=== PATIENT | male | born 1940 | race Caucasian/White ===

== ENCOUNTER → 2017-11-29 09:57 | Outpatient (CLI) | payer MEDICARE, SELFPAY ==
--- NOTE | 2017-11-29 10:00 | RAD_ITS ---
STUDY: X-RAY - LUMBAR SPINE REASON FOR EXAM: Male, 77 years old. Low back pain TECHNIQUE: 5 view(s) of the lumbar spine were obtained. COMPARISON: None FINDINGS: Normal lumbar lordosis. There is no substantial scoliosis. There is a normal alignment of the vertebrae. There is diffuse demineralization with multi-level endplate spondylosis. There is multi-level degenerative disc disease with multi-level disc space narrowing, most prominently at L4-5. There is no demonstrated fracture. There is atherosclerotic calcification of the abdominal aorta without a demonstrated aneurysm. RAD/L/S Spine Min 4 Views IMPRESSION: Degenerative changes of the spine, as detailed above. Electronically Signed: William Burroughs MD at 10:27 EDT , Service support ,
--- NOTE | 2017-11-29 10:00 | RAD_ITS ---
STUDY: X-RAY - SACROILIAC JOINTS REASON FOR EXAM: Male, 77 years old. Low back pain TECHNIQUE: 3 view(s) of the sacroiliac joints were obtained. COMPARISON: None. FINDINGS: There are degenerative changes of the bilateral sacroiliac joints. Normal visualized sacral ala and sacrum. Normal visualized iliac bones. Normal visualized soft tissue structures. Replaced right hip joint demonstrates anatomic alignment. No plain film evidence of hardware complication RAD/S-I Jts 3 or More Views IMPRESSION: Degenerative changes of the bilateral sacroiliac joints, as described above. Electronically Signed: William Burroughs MD at 10:28 EDT , Service support ,
== END ==
PROVIDERS: Family Provider Family Medicine; PCP Family Medicine; Visit Provider Family Medicine
DX: M51.16 Intervertebral disc disorders with radiculopathy, lumbar region (principal); M47.896 Other spondylosis, lumbar region
CPT/HCPCS: 72110; 72202

== ENCOUNTER → 2017-12-31 14:01 | Outpatient (CLI) | payer MEDICARE, SELFPAY ==
[2017-12-31 15:14] LABS: Absolute Lymphocyte Count 1.08 X10^3/ul (0.83-4.51); Absolute Neutrophil Count 5.7 X10^3/uL (2.0-7.7); Basophil# 0.04 X10^3/uL; Basophil% 0.5 % (0-1); Eosinophil# 0.19 X10^3/uL; Eosinophils% 2.4 % (0-5); Hematocrit 42.6 % (40-54); Hemoglobin 14.6 g/dl (13.0-16.5); Lymphocyte # 1.08 X10^3/ul (4.0); Lymphocyte % 13.5 % (19-41); Mean Corp Hgb Conc 34.3 g/gl (32-36); Mean Corpuscular Hgb 32.5 pg (27.0-32.0); Mean Corpuscular Volume 94.9 fL (80-94); Mean Platelet Vol. 10.9 fl (6.2-12.0); Monocyte# 0.93 X10^3/uL; Monocyte% 11.6 % (0-10); Neutrophil # 5.73 X10^3/uL (2.7-7.7); Neutrophil % 71.6 % (47-70); Platelet Count 142 K/mm3 (150-450); RBC Distribution Width CV 12.8 % (11.6-14.6); RBC Distribution Width SD 43.3 fl (35.1-43.9); Red Blood Count 4.49 M/mm3 (4.6-6.2)
[2017-12-31 15:15] LABS: POSITIVE COUNT NO; POSITIVE DIFFERENTIAL NO; POSITIVE MORPHOLOGY NO
[2017-12-31 15:49] LABS: Anion Gap 6 (5-15); BUN 13 mg/dL (7-18); BUN/Creat Ratio 13.4 RATIO (10-20); Calcium,Total 8.8 mg/dL (8.5-10.1); Chloride 105 mmol/L (98-107); Creatinine, Serum 0.97 mg/dL (0.70-1.30); EST Glomerular Filtration Rate 79 mL/min (>60); Est Glom Filt Rate - Afr Amer 96 mL/min (>60); Glucose 87 mg/dL (74-106); Potassium 4.1 mmol/L (3.5-5.1); Sodium Level 138 mmol/L (136-145); T4 Free Direct 0.99 ng/dL (0.76-1.46); Thyroid Stim Hormone (TSH) 1.36 uIU/mL (0.358-3.74)
== END ==
PROVIDERS: Family Provider Family Medicine; PCP Family Medicine; Visit Provider Nurse Practitioner Family
DX: I25.10 Atherosclerotic heart disease of native coronary artery without angina pectoris (principal); I10 Essential (primary) hypertension; R53.83 Other fatigue; Z95.0 Presence of cardiac pacemaker; Z95.1 Presence of aortocoronary bypass graft
CPT/HCPCS: 36415; 80048; 84439; 84443; 85025

== ENCOUNTER → 2018-01-06 05:50 | Outpatient (CLI) | payer MEDICARE, SELFPAY ==
--- NOTE | 2018-01-06 09:01 | STRESSREP ---
Stress Test Report Pharmacologic myocardial perfusion stress test. 77-year-old man with a history of fatigue and previous coronary bypass surgery. Resting EKG demonstrates normal sinus rhythm with rate of 61 bpm left bundle branch block pattern consistent with pacing activity. 0.4 mg of regadenoson was infused per usual protocol followed by rapid intravenous saline flush injection. Continuous EKG monitoring was performed. The patient maintained sinus rhythm with ventricular pacing throughout the recording at rest there were no ST or T-wave changes noted suggest abnormal flow reserve left bundle branch block pattern persisted throughout at peak infusion no ST or T-wave changes noted suggest abnormal flow reserve resting blood pressure is 170/80 mmHg with a final blood pressure 158/82 mmHg. Myocardial perfusion protocol. 14.1 mCi of technetium 99m sestamibi was injected at rest. 0.4 mg regadenoson was infused per usual protocol. At peak infusion 44.3 mCi of technetium 99m sestamibi was injected. Stress images were obtained stress and rest images were reconstructed and compared in the short axis vertical long and horizontal long axis. Gated images were also obtained. Perfusion SPECT analysis: Review of the stress images demonstrate normal uptake of tracer noted in all areas of the myocardium the resting images similarly demonstrate normal uptake of tracer noted in all areas of the myocardium. No areas of reversibility are noted suggest ischemia no previous infarct is noted. Gated SPECT analysis: The gated ejection fraction is 77%. Conclusion: Normal pharmacologic myocardial perfusion stress test Ventricular pacing noted. Preserved ejection fraction.
== END ==
PROVIDERS: Family Provider Family Medicine; PCP Family Medicine; Visit Provider Nurse Practitioner Family
DX: I25.10 Atherosclerotic heart disease of native coronary artery without angina pectoris (principal); R53.83 Other fatigue; Z95.1 Presence of aortocoronary bypass graft
CPT/HCPCS: 78452; 93017; A9500; A4216; J2785

== ENCOUNTER 2019-05-08 11:19 | Emergency (ER) | payer OTHER, MEDICARE, SELFPAY ==
[2019-04-16 07:42] VITALS: BMI 29.0
[2019-05-08 11:20] VITALS: BP 157/77; PULSE 60; RESP 16; TEMP 36.6; O2SAT 97; BMI 27.3
[2019-05-08 12:03] LABS: Anion Gap 4 (5-15); BUN 17 mg/dL (7-18); Calcium,Total 8.9 mg/dL (8.5-10.1); Chloride 105 mmol/L (98-107); Creatinine, Serum 1.21 mg/dL (0.70-1.30); EST Glomerular Filtration Rate 61 mL/min (>60); Est Glom Filt Rate - Afr Amer 74 mL/min (>60); Estimated Creatinine Clearance 47.11 ml/min; Glucose 107 mg/dL (74-106); Potassium 4.3 mmol/L (3.5-5.1); Sodium Level 136 mmol/L (136-145)
--- NOTE | 2019-05-08 12:08 | ED.VISSUMM ---
- ER Visit Summary Date of Service: 05/08/19 Chief Complaint: Abnormal lab History of Present Illness: The patient is a 78 M who was referred to the ED for high potassium. It was 5.7 on outpatient testing. He was not having symptoms. This was a medical clearance test. Physical Examination: Afebrile and vital signs unremarkable. Exam unremarkable. Test Results: BMP is unremarkable. Potassium is 4.3. Emergency Department Course and Treatment: I suspect the patient had a hemolyzed sample. His potassium is normal. His previous test have been normal. There is no indication to expect hyperkalemia. He was discharged to follow-up with his doctor. Treatment Plan: As above Disposition: Discharge Impression: 1. Hyperkalemia, feared complaint This note was generated with [employer] dictation software. It may contain incorrect words, spelling, and punctuation that were not noted in review of the chart prior to signing ED Disposition - Plan for ED Patient: Referrals: Elham Rodriguez MD [Primary Care Provider] -
--- NOTE | 2019-05-08 12:09 | ED.DEP ---
ED Disposition - Plan for ED Patient: Instructions: Basic Metabolic Panel Blood Referrals: Elham Rodriguez MD [Primary Care Provider] -
[2019-05-08 12:38] VITALS: BP 136/72; PULSE 60; RESP 16; O2SAT 93
== END 2019-05-08 12:39 | disposition home or self-care (01) ==
PROVIDERS: Emergency Provider Emergency Medicine; Family Provider Family Medicine; PCP Family Medicine
DX: Z71.1 Person with feared health complaint in whom no diagnosis is made (principal); I48.91 Unspecified atrial fibrillation; I10 Essential (primary) hypertension; Z79.82 Long term (current) use of aspirin; Z79.899 Other long term (current) drug therapy; Z87.891 Personal history of nicotine dependence
CPT/HCPCS: 80048; 99283; A4216

== ENCOUNTER → 2020-03-10 08:22 | Outpatient (CLI) | payer MEDICARE, SELFPAY ==
[2019-11-10 09:08] VITALS: BMI 27.9
[2020-03-17 18:22] LABS: ACHR Recep AB, Blocking 13 % (0-25); Acetylcholine Receptor Binding 0.04 nmol/L (0.00-0.24)
== END ==
PROVIDERS: PCP Family Medicine
DX: Z00.00 Encounter for general adult medical examination without abnormal findings (principal)
CPT/HCPCS: 36415; 83519; 84238

== ENCOUNTER 2020-07-25 00:26 | Observation (INO) | payer MEDICARE, OTHER, SELFPAY ==
[2020-05-12 11:00] VITALS: BMI 27.8
[2020-07-25] VITALS (9 sets, daily range): BP systolic 125–195; BP diastolic 54–92; PULSE 59–64; RESP 16–18; TEMP 36.6–37.1; O2SAT 93–98; BMI 28.7; BMI 28.8; BMI 28.9
--- NOTE | 2020-07-25 00:43 | EKG12_ITS ---
Test Reason : FLANK PAIN Blood Pressure : / mmHG Vent. Rate : 060 BPM Atrial Rate : 059 BPM P-R Int : 000 ms QRS Dur : 158 ms QT Int : 488 ms P-R-T Axes : 000 050 066 degrees QTc Int : 488 ms AV dual-paced rhythm Abnormal ECG Confirmed by BURAK BERNARD, JAMIE ([id number]), social media editor BJ MONTIEL ([id number]) on 07/26/2020 9:21:28 AM Referred By: KITA Confirmed By:JAMIE SUMNER MD
--- NOTE | 2020-07-25 00:44 | CT_ITS ---
STUDY: CT ABDOMEN AND PELVIS WITHOUT CONTRAST REASON FOR EXAM: Male, 80 years old. ALL OVER ABD PAIN X 1 DAY WITH NAUSEA, HX HTN, PACER, MS RADIATION DOSAGE (If Supplied By Facility): CTDIvol = ( 24.10 ) mGy, DLP = ( 1279.67 ) mGycm TECHNIQUE: Transaxial images were obtained from the dome of the diaphragm to the symphysis pubis without oral contrast, and without intravenous contrast. Sagittal and coronal images were reconstructed. Individualized dose optimization techniques were used for this CT. COMPARISON: None. FINDINGS: Lung bases reveal bilateral subpleural interstitial prominence suggestive of chronic interstitial lung disease/early pulmonary fibrosis. Heart is border line enlarged with coronary artery calcifications. Normal liver. Overdistended gallbladder otherwise unremarkable gallbladder and extrahepatic biliary system. There are multiple benign calcified granulomata of the spleen. Normal pancreas. Normal bilateral adrenal glands. Nonspecific perinephric stranding otherwise normal right kidney. Nonspecific perinephric stranding otherwise normal left kidney. Minimal hiatal hernia, otherwise unremarkable visualized stomach. Mild stranding surrounding the duodenal C-loop with pulmonary thickening of the wall throughout the duodenum, cannot exclude duodenitis. Remainder of the jejunal loops reveal borderline thickening of the wall with areas of air-fluid level which may indicate early enteritis. There are multiple colonic diverticula consistent with diverticulosis. The appendix is visualized and appears normal. There is diffuse atherosclerotic calcification of the abdominal aorta, without a demonstrated aneurysm. Normal inferior vena cava. Normal retroperitoneum. Normal urinary bladder. Normal abdominal wall. There are diffuse degenerative changes of the visualized lumbar spine. Postoperative changes with the right-sided humeral prosthesis in place. CT/Abdomen/Pelvis without Cont IMPRESSION: Findings suggestive of proximal enteritis/duodenitis. No acute appendicitis or bowel obstruction. Minimal hiatal hernia. Electronically Signed: Natalia Justice MD at 1:22 EST , Service support ,
--- NOTE | 2020-07-25 00:45 | ED.DCSUM_ITS ---
History of Present Illness Chief Complaint: Abd Pain Informant: Patient Narrative: Stated since yesterday approximately 20 hours ago he started constant aching epigastric abdominal pain. Hurts to push on it. 3 episodes of emesis. Normal bowel movements. Denies having this in the past. No previous abdominal surgeries. History of cardiac bypass in the remote past. Denies any chest pain or shortness of breath. He tried Pepto-Bismol with no relief. Current severity is moderate. Worsened by nothing. Relieved by nothing. It has been continuous. - Past Medical History (1) Dyspnea on exertion Status: Acute (2) Fatigue Status: Acute (3) AV block, Mobitz 2 Status: Chronic (4) Atherosclerotic heart disease of [place] coronary artery without angina pectoris Status: Chronic (5) Cardiac pacemaker in situ Status: Chronic Comment: Implant: 06/14/06 Generator change: 01/30/2013 (6) Essential (primary) hypertension Status: Chronic (7) H/O coronary artery bypass surgery Status: Chronic Comment: CABGx 3 CASAS graft LAD, SVG-Ramus, SVG- RCA 06/16/1997 (8) HLD (hyperlipidemia) Status: Chronic (9) Paroxysmal atrial fibrillation Status: Chronic Past Medical History - Allergies and Home Meds Allergies/Adverse Reactions: Allergies No Known Allergies Allergy (Verified 07/25/20 00:29) Prior records reviewed: Yes Past Medical History: - - See problem list Surgical History: coronary bypass surgery, pacemaker implantation, - Smoking Status: Former smoker Alcohol: None Drugs: None Review of Systems General: Denies: Chills, Fever, Sweats Eyes: Denies: Visual changes - bilaterally, Diplopia ENT: Denies: Rhinorrhea, Sore throat Cardiovascular: Denies: Chest pain, Palpitations Respiratory: Denies: Dyspnea, Cough, Dyspnea on exertion Gastrointestinal: Reports: Abdominal pain, Nausea, Vomiting. Denies: Diarrhea, Melena, Hematochezia Genitourinary: Denies: Dysuria, Hematuria, Frequency Musculoskeletal: Denies: Back pain, Extremity Pain Skin: Denies: Rash, Wounds Neurological: Denies: Headache, Weakness, Numbness Physical Exam Vital Signs/Narrative: Vital Signs Temp Pulse Resp BP Pulse Ox 07/25/20 00:26 97.8 F 60 16 195/92 H 98 General: Well nourished, Well developed, No Acute Distress Head: Normocephalic, Atraumatic Eyes: Perrl, EOMI ENT: Moist mucous membranes, No rhinorrhea Neck: Supple, Nontender Cardiovascular: Regular rate, Regular rhythm, No murmurs Respiratory: No distress, CTA bilaterally, Chest nontender Abdomen: Soft, Nondistended, Normal bowel sounds, Tender - Tender epigastric. Negative for: Guarding, Rebound tenderness Back: Nontender, Normal Inspection Extremities: Nontender, No edema Skin: Normal color, No rash Neurological: Alert, Oriented x3, Cranial nerves II-XII grossly intact, Normal Strength, Normal Sensation Psychological: Normal affect, Normal Mood Diagnostic/Tx/Re-eval - Medical Decision Making IV established and given morphine and Zofran. Lab work EKG and CT abdomen pelvis obtained.. Patient also given IV fluids. Lab work shows a mild leukocytosis. Liver function test unremarkable. Lipase greater than 1000. CT abdomen pelvis shows evidence of duodenitis and enteritis. 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 He did have this problem several years ago and it resolved on its own. He is a nondrinker. Gallbladder was visualized that shows distention without stones. Patient stated this resolved in the past without problem when he was admitted to [facility] a few years ago. Patient discussed with the hospitalist and will be readmitted. EKG was obtained shows paced rhythm at a rate of 60. Troponin was negative. ED Disposition - Plan for ED Patient: Disposition: Acute Care Hospital [facility] Diagnosis: Acute pancreatitis, Duodenitis
[2020-07-25] MEDS: Morphine 2 MG/ML Syringe IV ×2 (00:58→04:29)
[2020-07-25] MEDS: Ondansetron 4 MG/2 ML Vial IV ×2 (00:59→04:25)
[2020-07-25 01:12] LABS: Absolute Lymphocyte Count 1.03 X10^3/uL (0.83-4.51); Basophil# 0.06 X10^3/uL; Basophil% 0.5 % (0-1); Eosinophil# 0.15 X10^3/uL; Eosinophils% 1.3 % (0-5); Hematocrit 45.5 % (40-54); Hemoglobin 15.3 g/dL (13.0-16.5); Lymphocyte # 1.03 X10^3/ul (4.0); Lymphocyte % 8.8 % (19-41); Mean Corp Hgb Conc 33.6 g/dL (32-36); Mean Corpuscular Hgb 31.5 pg (27.0-32.0); Mean Corpuscular Volume 93.6 fL (80-94); Mean Platelet Vol. 10.8 fl (6.2-12.0); Monocyte# 1.43 X10^3/uL; Monocyte% 12.2 % (0-10); NRBC Flagged by Analyzer 0 % (0-5); Neutrophil # 9.02 X10^3/uL (2.7-7.7); Neutrophil % 76.8 % (47-70); Platelet Count 143 K/mm3 (150-450); RBC Distribution Width CV 11.8 % (11.6-14.6); RBC Distribution Width SD 40.8 fl (35.1-43.9); Red Blood Count 4.86 M/mm3 (4.6-6.2); White Blood Count 11.7 K/mm3 (4.4-11.0)
[2020-07-25 01:27] LABS: ALB/GLOB Ratio 0.9 RATIO (0.9-2.4); AST(SGOT) 21 U/L (15-37); Alanine Aminotransfer ALT/SGPT 25 U/L (16-61); Albumin, Serum 3.4 g/dL (3.2-5.0); Alkaline Phosphatase 117 U/L (45-117); Anion Gap 9 (5-15); BUN 13 mg/dL (7-18); BUN/Creat Ratio 13.2 RATIO (10-20); Calcium,Total 8.4 mg/dL (8.5-10.1); Chloride 99 mmol/L (98-107); Creatinine, Serum 0.98 mg/dL (0.70-1.30); EST Glomerular Filtration Rate 78 mL/min (>60); Est Glom Filt Rate - Afr Amer 94 mL/min (>60); Estimated Creatinine Clearance 54.33 ml/min; Globulin 3.8 g/dL (2.2-4.2); Glucose 115 mg/dL (74-106); Lipase 1097 U/L (73-393); Potassium 3.9 mmol/L (3.5-5.1); Protein, Total 7.2 g/dL (6.4-8.2); Sodium Level 134 mmol/L (136-145)
[2020-07-25] MEDS: 0.9% Normal Saline 1,000 ML 150 ML IV (01:47)
--- NOTE | 2020-07-25 01:59 | HP.PCM_ITS ---
Problem List (1) Acute pancreatitis Status: Acute (2) Duodenitis Status: Acute (3) Cardiac pacemaker in situ Status: Chronic Comment: Implant: 06/14/06 Generator change: 01/30/2013 (4) AV block, Mobitz 2 Status: Chronic (5) Atherosclerotic heart disease of [place] coronary artery without angina pectoris Status: Chronic Qualifiers: [place] vs. transplanted heart: [place] heart Qualified Code(s): I25.10 - Atherosclerotic heart disease of [place] coronary artery without angina pectoris (6) H/O coronary artery bypass surgery Status: Chronic Comment: CABGx 3 CASAS graft LAD, SVG-Ramus, SVG- RCA 06/16/1997 (7) Paroxysmal atrial fibrillation Status: Chronic (8) Essential (primary) hypertension Status: Chronic (9) HLD (hyperlipidemia) Status: Chronic Qualifiers: Hyperlipidemia type: unspecified Qualified Code(s): E78.5 - Hyperlipidemia, unspecified (10) Enteritis Status: Acute History of Present Illness Date of Admission: 07/25/20 Chief Complaint: Epigastric pain The patient is a 80 year old M 80-year-old patient with a significant medical history of permanent pacemaker placement who presents with epigastric abdominal pain. His pain started a day before presentation. His pain was continuous. He rated his pain as 8 out of 10. He denies any aggravating or ameliorating factors to the pain. He describes pain as aching. Associated with his symptoms is nausea and vomiting. His pain radiated to his lower chest. He is not a drinker of alcohol. He has never had any previous significant abd ominal problems other than an episode 3 years ago where he had similar complaints. He was seen at outside hospital with negative work-up including gallbladder ultrasound and cardiac cardiac work-up. At that time he had elevated lipase. He did come to our emergency department and had a lipase of about 500 at that time but did not have pain and was discharged home. Past Medical History Past Medical History (Chronic Problems): Chronic Problems (Last Reviewed 07/25/20 @ 04:[address] Reddy Gama MD) Cardiac pacemaker in situ (Chronic 2012) Implant: 06/14/06 Generator change: 01/30/2013 AV block, Mobitz 2 (Chronic) Atherosclerotic heart disease of [place] coronary artery without angina pectoris (Chronic) H/O coronary artery bypass surgery (Chronic 06/16/97) CABGx 3 CASAS graft LAD, SVG-Ramus, SVG- RCA 06/16/1997 Paroxysmal atrial fibrillation (Chronic) Essential (primary) hypertension (Chronic) HLD (hyperlipidemia) (Chronic) Medical History: Medical History (Last Reviewed 07/25/20 @ 04:[address] Reddy Gama MD) AV block, Mobitz 2 (Chronic) I44.1 Atherosclerotic heart disease of [place] coronary artery without angina pectoris (Chronic) I25.10 Paroxysmal atrial fibrillation (Chronic) I48.0 Essential (primary) hypertension (Chronic) I10 HLD (hyperlipidemia) (Chronic) E78.5 Allergies No Known Allergies Allergy (Verified 07/25/20 00:29) Home Medications: Ambulatory Orders Medication Instructions Recorded Aspirin [Aspir-Low] 81 mg PO QHS 06/22/17 Esomeprazole Mag Trihydrate 40 mg PO DAILY 06/22/17 [Nexium] [place]-3 Fatty Acids/Fish Oil [Fish 1 ea PO DAILY 06/22/17 Oil 1,000 mg Capsule] nitroglycerin 0.4 mg sublingual 0.4 mg SUBLINGUAL Q5M PRN 09/13/17 tablet ramipril 2.5 mg capsule 2.5 mg PO DAILY #90 cap 04/16/19 apixaban 5 mg tablet 5 mg PO BID #180 tab 11/10/19 atorvastatin 80 mg tablet 80 mg PO DAILY 11/10/19 metoprolol succinate 50 mg 50 mg PO DAILY #90 tab 05/16/20 tablet,extended release 24 hr Cholecalciferol (Vitamin D3) 2,000 unit PO BID 07/25/20 [Vitamin D3] Surgical History: Surgical History (Last Reviewed 07/25/20 @ 04:[address] Reddy Gama MD) Cardiac pacemaker in situ (Chronic) Onset Date: 2012 Z95.0 Implant: 06/14/06 Generator change: 01/30/2013 H/O coronary artery bypass surgery (Chronic) Onset Date: 06/16/97 Z95.1 CABGx 3 CASAS graft LAD, SVG-Ramus, SVG- RCA 06/16/1997 History of left heart catheterization (LHC) Z98.890 10/05/2004 @ [facility] Surgical History: coronary bypass surgery, pacemaker implantation, - Smoking Status: Former smoker Alcohol: None Drugs: None - *Family History Maternal Family History: Family History (Last Reviewed 07/25/20 @ 04:[address] Reddy Gama MD) Father Cancer Mother Hypertension Brother CVA (cerebral vascular accident) Diabetes Sister Diabetes Review of Systems Constitutional: Denies: Chills, Fever, Weight Change HEENT: Denies: Head Aches, Sinus Congestion, Sinus Drainage Cardiovascular: Denies: Chest Pain, Palpitations Respiratory: Denies: Cough, Shortness of breath at rest, Sputum production Gastrointestinal: Reports: Abdominal Pain, Nausea, Vomiting Genitourinary: Denies: Dysuria Musculoskeletal: Denies: Joint Pain, Joint Tenderness Skin: Denies: Rash, Wounds Neurological: Denies: Numbness, Tingling, Focal weakness Psychiatric: Denies: Anxiety, Depression, Homicidal Ideations, Suicidal Ideations Hematologic/ Lymphatic: Denies: Easy Bruising, Easy Bleeding VTE Information - Inpt Only VTE Present on Admission: No VTE Mechan Device Prophylaxis: None VTE Pharm Prophylaxis ordered?: No Reason prophylaxis not ordered:: Treatment Not Indicated - Eliquis for A. fib continued Patient Problems: Active and Suspected Problems (Last Reviewed 07/25/20 @ 04:[address] Reddy Gama MD) Acute pancreatitis (Acute) Duodenitis (Acute) Enteritis (Acute) - Physical Exam Vitals/I&O's: Vital Signs Temp Pulse Resp BP Pulse Ox 97.8 F 60 16 195/92 H 98 07/25/20 00:26 07/25/20 00:26 07/25/20 00:26 07/25/20 00:26 07/25/20 00:26 Oxygen Delivery Method Room Air Weight: 83.2 kg Body Mass Index (BMI) 28.7 General: Alert, Oriented x3, Cooperative HEENT: Atraumatic, PERRLA, EOMI, Normocephalic Neck: Supple, No JVD, Negative Carotid Bruits Lungs: Clear to auscultation, Normal air movement, No rhonchi, No wheeze, No rales Cardiovascular: Regular rate, Regular Rhythm, Normal S1, Normal S2, No murmurs Abdomen: Bowel Sounds Present, Soft, Tender - Right lumbar area Extremities: No edema, Capillary Refill Less than 3 Seconds Skin: No rashes, No breakdown Musculoskeletal: No Tenderness to Palpation of Joints or Extremities Neurological: Cranial nerves II-XII grossly intact Psych/Mental Status: Normal Affect, Appropriate Laboratory Results 07/25/20 01:00: WBC 11.7 H, RBC 4.86, Hgb 15.3, Hct 45.5, MCV 93.6, MCH 31.5, MCHC 33.6, RDW Std Deviation 40.8, RDW Coeff of [place] 11.8, Plt Count 143 L, MPV 10.8, Immature Gran % (Auto) 0.400, Neut % (Auto) 76.8 H, Lymph % (Auto) 8.8 L, [place] % (Auto) 12.2 H, Eos % (Auto) 1.3, Baso % (Auto) 0.5, Absolute Neuts (auto) 9.0 H, Absolute Lymphs (auto) 1.03, Nucleated RBC % 0 07/25/20 01:00: Sodium 134 L, Potassium 3.9, Chloride 99, Carbon Dioxide 26.0, Anion Gap 9, BUN 13, Creatinine 0.98, Estim Creat Clear Calc 54.33, Est GFR (MDRD) Af Amer 94, Est GFR (MDRD) Non-Af 78, BUN/Creatinine Ratio 13.2, Glucose 115 H, Calcium 8.4 L, Total Bilirubin 1.10 H, AST 21, ALT 25, Alkaline Phosphatase 117, Troponin I < 0.015, Total Protein 7.2, Albumin 3.4, Globulin 3.8, Albumin/Globulin Ratio 0.9, Lipase 1097 H Current Medications Sodium Chloride () 1,000 mls @ 150 mls/hr IV .Q6H40M [facility] Last Admin: 07/25/20 01:47 Dose: 150 mls/hr Documented by: Assessment/Plan All Active Problems (Last Reviewed 07/25/20 @ 04:[address] Reddy Gama MD) Acute pancreatitis (Acute) Duodenitis (Acute) Enteritis (Acute) Acute pancreatitis Lipase on presentation was 1097. Review of old records shows that on 06/21/2017 his lipase was 516. And on 06/22/2018 his lipase was 554. On 06/28/2017 his lipase was 272. Received normal saline 150 mL's per hour at emergency department. Lactated Ringer's 100 MS per hour ordered. Cautious use of IV fluid because of his age. Will check a lipid level. Patient is not a drinker. We will keep patient n.p.o. except meds and gets ultrasound of his gallbladder. Of note liver enzymes are not remarkable. Received morphine IV at emergency department. Continue morphine IV as needed ordered. Duodenitis/enteritis. CT of abdomen and pelvis showed duodenitis/pancreatitis. This can also cause elevated lipase. On home Nexium once a day. Protonix 40 mg IV twice daily ordered Leukocytosis Mild Likely reactive Trend. Proximal A. fib Apixaban continued Metoprolol continued Hypertensive urgency Metoprolol; and SKYLER inhibitor continued Hydralazine as needed ordered. Hyperlipidemia Lipitor continued DVT prophylaxis Not indicated since patient is on Eliquis. Eliquis continued. Inpatient E&M: 78822 Init Hosp L3
[2020-07-25 03:17] LABS: Cholesterol 152 mg/dL (200); High Density Lipoprotein 52 mg/dL; Triglycerides 67 mg/dL; Very Low Density Lipoprotein 13 mg/dL (5-40)
[2020-07-25] MEDS: Lactated Ringers 1,000 ML 100 ML IV ×2 (03:20→15:39)
[2020-07-25] MEDS: hydrALAZINE 20 MG/ML Vial 5 MG IV (03:22)
--- NOTE | 2020-07-25 05:55 | US_ITS ---
STUDY: ABDOMINAL ULTRASOUND - RIGHT UPPER QUADRANT REASON FOR VISIT: Male, 80 years old PANCREATITIS -- R/O GALLSTONES TECHNIQUE: Ultrasound evaluation of the right upper quadrant was performed with real-time and static jose-scale imaging. TECHNICAL QUALITY: Adequate. COMPARISON: None. FINDINGS: Liver: The liver measures 16.2 cm. There is normal echogenicity of the liver. The bile ducts are within normal limits. There is hepatic color flow. The direction of portal flow is hepatopetal. There is no demonstrated mass lesion. Gallbladder: Normal distended gallbladder. The gallbladder wall measures 2.8 mm. There is a negative sonographic Montilla''s sign. There is no pericholecystic fluid. There are no gallstones. Common Bile Duct (C.B.D.): The common bile duct measures 2.8 mm. Pancreas: Normal size of the head, body and tail of the pancreas. There is increased echogenicity of the pancreas. There is no demonstrated pancreatic mass or cyst. Right Kidney: Normal size of the right kidney. The right kidney measures 10.8 cm x 5.4 cm x 5.8 cm. Normal renal cortex. The right cortex measures cm. There is no demonstrated renal mass or cyst. There is no right hydronephrosis. US/Abdomen Limited IMPRESSION: Normal right upper quadrant ultrasound examination. Electronically Signed: Braxton Dewey, at 13:25 EST , Service support ,
[2020-07-25] MEDS: proCHLORPERazine 10 MG/2 ML Vial 5 MG IV (09:20)
--- NOTE | 2020-07-25 10:25 | CASEMGMT ---
RN CM Face to Face with patient for initial transition planning/care coordination assessment. RN CM introduced self and role at [facility]. Patient lying in bed, alert and oriented. Patient willing to participate in assessment and is able to answer all questions appropriately. Care providers, pharmacy, and demographics verified. Patient wishes to discharge home, denies need for home health at this time. Patient states he has no further needs or concerns at this time. CM to follow for discharge planning needs that may arise. PCP: Michael Specialists: Dai senior research associate Preferred Pharmacy: [facility] Prescription Benefit: yes Living Will/HPOA: yes, Yamilex Andrews HPOA LNOK: Living Arrangements: Patient lives with in a single story home with 2 steps and railing to enter the home. Patient states he is independent at home Transportation: self/ DME/HHC: Patient states he has cane and grab bars at home. Patient denies previous HHC. Disposition Plan: Patient to discharge home with family support and follow-up plan in place. Susan FRANCISCO, RN, CM
[2020-07-26] MEDS: Lactated Ringers 1,000 ML 100 ML IV ×2 (02:05→12:57)
[2020-07-26 02:08] VITALS: BP 128/53; PULSE 62; RESP 16; TEMP 37.1; O2SAT 92
[2020-07-26 05:45] LABS: Absolute Lymphocyte Count 0.99 X10^3/uL (0.83-4.51); Absolute Neutrophil Count 6.2 X10^3/uL (2.0-7.7); Basophil# 0.04 X10^3/uL; Basophil% 0.5 % (0-1); Eosinophil# 0.11 X10^3/uL; Eosinophils% 1.3 % (0-5); Hematocrit 41.5 % (40-54); Hemoglobin 13.5 g/dL (13.0-16.5); Lymphocyte # 0.99 X10^3/ul (4.0); Lymphocyte % 11.4 % (19-41); Mean Corp Hgb Conc 32.5 g/dL (32-36); Mean Corpuscular Hgb 30.9 pg (27.0-32.0); Mean Platelet Vol. 10.9 fl (6.2-12.0); Monocyte% 14.9 % (0-10); NRBC Flagged by Analyzer 0 % (0-5); Neutrophil # 6.23 X10^3/uL (2.7-7.7); Neutrophil % 71.6 % (47-70); Platelet Count 117 K/mm3 (150-450); RBC Distribution Width CV 11.9 % (11.6-14.6); RBC Distribution Width SD 41.3 fl (35.1-43.9); Red Blood Count 4.37 M/mm3 (4.6-6.2); White Blood Count 8.7 K/mm3 (4.4-11.0)
[2020-07-26 06:04] LABS: Anion Gap 5 (5-15); BUN 11 mg/dL (7-18); BUN/Creat Ratio 12.1 RATIO (10-20); Calcium,Total 8.4 mg/dL (8.5-10.1); Chloride 106 mmol/L (98-107); Creatinine, Serum 0.91 mg/dL (0.70-1.30); EST Glomerular Filtration Rate 85 mL/min (>60); Est Glom Filt Rate - Afr Amer 103 mL/min (>60); Estimated Creatinine Clearance 58.51 ml/min; Glucose 101 mg/dL (74-106); Lipase 363 U/L (73-393); Potassium 3.9 mmol/L (3.5-5.1); Sodium Level 137 mmol/L (136-145)
[2020-07-26 07:25] VITALS: O2SAT 92
[2020-07-26 08:08] VITALS: BP 147/62; PULSE 70; RESP 18; TEMP 36.8; O2SAT 98
[2020-07-26 10:12] VITALS: PULSE 74
[2020-07-26] MEDS: Calcium Carb/Vitamin D 1 TABLET Tablet PO (10:12)
[2020-07-26] MEDS: Ramipril 2.5 MG Capsule PO (10:12)
[2020-07-26] MEDS: Metoprolol(XL)Succ 50 MG Tablet PO (10:12)
[2020-07-26] MEDS: Aspirin E.C. 81 MG Tablet PO (10:13)
[2020-07-26] MEDS: APIXABAN 5 MG TABLET PO (10:13)
--- NOTE | 2020-07-26 11:04 | PCM.DC.SUM ---
Discharge Date and Diagnosis - Problem List Patient Problems: Active and Suspected Problems (Last Reviewed 07/25/20 @ 04:[address] Reddy Gama MD) Acute pancreatitis (Acute) Duodenitis (Acute) Enteritis (Acute) Date of Admission: 07/25/20 Date of Discharge: 07/26/20 - Primary Discharge Diagnosis Acute Problems: Active Problems (Last Reviewed 07/25/20 @ 04:[address] Reddy Gama MD) Acute pancreatitis (Acute) Duodenitis (Acute) Enteritis (Acute) - Secondary Discharge Diagnosis Chronic Problems: Chronic Problems (Last Reviewed 07/25/20 @ 04:[address] 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 TECHNICAL QUALITY: Adequate. COMPARISON: None. FINDINGS: Liver: The liver measures 16.2 cm. There is normal echogenicity of the liver. The bile ducts are within normal limits. There is hepatic color flow. The direction of portal flow is hepatopetal. There is no demonstrated mass lesion. Gallbladder: Normal distended gallbladder. The gallbladder wall measures 2.8 mm. There is a negative sonographic Montilla''s sign. There is no pericholecystic fluid. There are no gallstones. Common Bile Duct (C.B.D.): The common bile duct measures 2.8 mm. Pancreas: Normal size of the head, body and tail of the pancreas. There is increased echogenicity of the pancreas. There is no demonstrated pancreatic mass or cyst. Right Kidney: Normal size of the right kidney. The right kidney measures 10.8 cm x 5.4 cm x 5.8 cm. Normal renal cortex. The right cortex measures cm. There is no demonstrated renal mass or cyst. There is no right hydronephrosis. US/Abdomen Limited IMPRESSION: Normal right upper quadrant ultrasound examination. Electronically Signed: Braxton Dewey, at 13:25 EST , Service support , TUDY: CT ABDOMEN AND PELVIS WITHOUT CONTRAST REASON FOR EXAM: Male, 80 years old. ALL OVER ABD PAIN X 1 DAY WITH NAUSEA, HX HTN, PACER, NM RADIATION DOSAGE (If Supplied By Facility): CTDIvol = ( 24.10 ) mGy, DLP = ( 1279.67 ) mGycm TECHNIQUE: Transaxial images were obtained from the dome of the diaphragm to the symphysis pubis without oral contrast, and without intravenous contrast. Sagittal and coronal images were reconstructed. Individualized dose optimization techniques were used for this CT. COMPARISON: None. FINDINGS: Lung bases reveal bilateral subpleural interstitial prominence suggestive of chronic interstitial lung disease/early pulmonary fibrosis. Heart is border line enlarged with coronary artery calcifications. Normal liver. Overdistended gallbladder otherwise unremarkable gallbladder and extrahepatic biliary system. There are multiple benign calcified granulomata of the spleen. Normal pancreas. Normal bilateral adrenal glands. Nonspecific perinephric stranding otherwise normal right kidney. Nonspecific perinephric stranding otherwise normal left kidney. Minimal hiatal hernia, otherwise unremarkable visualized stomach. Mild stranding surrounding the duodenal C-loop with pulmonary thickening of the wall throughout the duodenum, cannot exclude duodenitis. Remainder of the jejunal loops reveal borderline thickening of the wall with areas of air-fluid level which may indicate early enteritis. There are multiple colonic diverticula consistent with diverticulosis. The appendix is visualized and appears normal. There is diffuse atherosclerotic calcification of the abdominal aorta, without a demonstrated aneurysm. Normal inferior vena cava. Normal retroperitoneum. Normal urinary bladder. Normal abdominal wall. There are diffuse degenerative changes of the visualized lumbar spine. Postoperative changes with the right-sided humeral prosthesis in place. CT/Abdomen/Pelvis without Cont IMPRESSION: Findings suggestive of proximal enteritis/duodenitis. No acute appendicitis or bowel obstruction. Minimal hiatal hernia. Electronically Signed: Natalia Justice MD at 1:22 EST , Service support , Operations: None Procedures: None Summary of Care Provided: Mr. Andrews is an 80 year old M 80-year-old patient with a significant medical history of permanent pacemaker placement who presented to the ED on 07/25/2020 early in the AM with epigastric abdominal pain. He stated at that time that his pain started a day before presentation. His pain was continuous. He rated it as 8 out of 10. He denied any aggravating or ameliorating factors. He described it as aching in nature and had associated nausea and vomiting. He is not a drinker of alcohol. He stated that he had and episode similar to this one about 3 years ago that resolved on its own. A CT of the abdomen done in the ED demonstrated duodenitis and enteritis and his lipase on admission was 1097 with a bilirubin of 1.10. A RUQ US was done and was unremarkable. He was made NPO and given hydration and pain medications. His sx had completely resolved on the AM of 07/26 and he was given a CLD which was able to be progressed to a regular cardiac diet without issues. He was discharged home with no medication changes on 07/26 in stable condition and instructed to f/u with his PCP in 1-2 weeks for a hospital follow-up. Discharge Diagnoses Acute Pancreatitis-mild and resolved AV Block-Mobitz 2 s/p pacer CAD PAF HTN HPL GERD D/C time > 31' Patient Problems: Active and Suspected Problems (Last Reviewed 07/25/20 @ 04:[address] Reddy Gama MD) Acute pancreatitis (Acute) Duodenitis (Acute) Enteritis (Acute) - Physical Exam Vitals/I&O's: Vital Signs Temp Pulse Resp BP Pulse Ox 98.3 F 74 18 147/62 H 98 07/26/20 08:08 07/26/20 10:12 07/26/20 08:08 07/26/20 08:08 07/26/20 08:08 Oxygen Delivery Method Room Air Weight: 83.6 kg Body Mass Index (BMI) 28.8 Intake and Output for Last 24 Hours 07/24/20 07/25/20 07/26/20 23:59 23:59 23:59 Intake Total 2229.17 / 2229.17 333.33 / 333.33 Output Total 650 / 650 650 / 650 Balance 1579.17 / 1579.17 -316.67 / -316.67 General: Alert, Oriented x3, Cooperative, No apparent distress, Well developed, Well nourished, - - Older WF sitting up in bed watching TV and appears well HEENT: Atraumatic Oral: Moist Mucosa, No Gingival or Mucosal Lesions/ Ulcerations Neck: Supple, Trachea Midline, Thyroid Normal Size and Texture Lungs: Clear to auscultation, No rhonchi, No wheeze, No rales Cardiovascular: Regular rate, Regular Rhythm, Normal S1, Normal S2, No murmurs, No rub noted, No Gallop Abdomen: Bowel Sounds Present, Soft, Non Tender, Non-Distended Extremities: No clubbing, No cyanosis, No edema, Capillary Refill Less than 3 Seconds, Peripheral Pulses Normal Skin: No rashes, No breakdown Musculoskeletal: No Tenderness to Palpation of Joints or Extremities, No Muscle Wasting, Arthritic Changes Lymphatic: No Cervical, Supraclavicular, or Inguinal Adenopathy Neurological: Cranial nerves II-XII grossly intact, Neuro grossly intact Psych/Mental Status: Normal Affect, Appropriate, - - very pleasant, Alert and oriented to time, place, person, mood and affect Laboratory Results 07/26/20 05:04: WBC 8.7, RBC 4.37 L, Hgb 13.5, Hct 41.5, MCV 95.0 H, MCH 30.9, MCHC 32.5, RDW Std Deviation 41.3, RDW Coeff of Lacey 11.9, Plt Count 117 L, MPV 10.9, Immature Gran % (Auto) 0.300, Neut % (Auto) 71.6 H, Lymph % (Auto) 11.4 L, Karnes % (Auto) 14.9 H, Eos % (Auto) 1.3, Baso % (Auto) 0.5, Absolute Neuts (auto) 6.2, Absolute Lymphs (auto) 0.99, Nucleated RBC % 0 07/26/20 05:04: Sodium 137, Potassium 3.9, Chloride 106, Carbon Dioxide 26.0, Anion Gap 5, BUN 11, Creatinine 0.91, Estim Creat Clear Calc 58.51, Est GFR (MDRD) Af Amer 103, Est GFR (MDRD) Non-Af 85, BUN/Creatinine Ratio 12.1, Glucose 101, Calcium 8.4 L, Lipase 363 Current Medications Apixaban (Apixaban 5 Mg Tablet) 5 mg PO BID [facility] Last Admin: 07/26/20 10:13 Dose: 5 mg Documented by: Aspirin (Aspirin E.C. 81 Mg Tablet) [facility] Last Admin: 07/26/20 10:13 Dose: 81 mg Documented by: Atorvastatin Calcium (Atorvastatin Calcium 80 Mg Tablet) 80 mg PO DAILY@2200 [facility] Last Admin: 07/25/20 21:42 Dose: Not Given Documented by: Calcium/Vitamin D (Calcium Carb/Vitamin D 1 Tablet Tablet) 1 tablet PO DAILY [facility] Last Admin: 07/26/20 10:12 Dose: 1 tablet Documented by: Hydralazine HCl (Hydralazine 20 Mg/Ml Vial) 5 mg IV Q6H PRN PRN PRN Reason: sbp > 160 Last Admin: 07/25/20 03:22 Dose: 5 mg Documented by: Lactated Ringer's () 1,000 mls @ 100 mls/hr IV .Q10H [facility] Last Admin: 07/26/20 02:05 Dose: 100 mls/hr Documented by: Pantoprazole Sodium 40 mg/ (Sodium Chloride) 110 mls @ 330 mls/hr IV Q12 [facility] Last Admin: 07/26/20 10:21 Dose: 330 mls/hr Documented by: Metoprolol Succinate (Metoprolol(Xl)Succ 50 Mg Tablet) 50 mg PO DAILY [facility] Last Admin: 07/26/20 10:12 Dose: 50 mg Documented by: Morphine Sulfate (Morphine 2 Mg/Ml Syringe) 2 mg IV Q3H PRN PRN PRN Reason: Pain Score 6-10 Last Admin: 07/25/20 04:29 Dose: 2 mg Documented by: Ondansetron HCl (Ondansetron 4 Mg/2 Ml Vial) 4 mg IV Q8H PRN PRN PRN Reason: NAUSEA/VOMITING Last Admin: 07/25/20 04:25 Dose: 4 mg Documented by: Prochlorperazine Edisylate (Prochlorperazine 10 Mg/2 Ml Vial) 5 mg IV Q4H PRN PRN PRN Reason: NAUSEA/VOMITING Last Admin: 07/25/20 09:20 Dose: 5 mg Documented by: Ramipril (Ramipril 2.5 Mg Capsule) 2.5 mg PO DAILY [facility] Last Admin: 07/26/20 10:12 Dose: 2.5 mg Documented by: Sodium Chloride (0.9% Saline Lock 10 Ml Syringe) 10 - 40 ml IV UD PRN PRN Reason: SALINE FLUSH Home Medications: Medications to take at Discharge Aspirin [Aspir-Low] 81 mg PO QHS 06/22/17 Esomeprazole Mag Trihydrate [Nexium] 40 mg PO DAILY 06/22/17 [place]-3 Fatty Acids/Fish Oil [Fish Oil 1,000 mg Capsule] 1 ea PO DAILY 06/22/17 nitroglycerin 0.4 mg sublingual tablet 0.4 mg SUBLINGUAL Q5M PRN 09/13/17 ramipril 2.5 mg capsule 2.5 mg PO DAILY #90 cap 04/16/19 apixaban 5 mg tablet 5 mg PO BID #180 tab 11/10/19 atorvastatin 80 mg tablet 80 mg PO DAILY 11/10/19 metoprolol succinate 50 mg tablet,extended release 24 hr 50 mg PO DAILY #90 tab 05/16/20 Cholecalciferol (Vitamin D3) [Vitamin D3] 2,000 unit PO BID 07/25/20 Primary Care Physician: Elham Rodriguez MD [Primary Care Provider] - Medical Necessity - Tobacco Use Smoking Status: Former smoker Meaningful Use Info Meaningful Use Diagnoses (Choose all that apply): None applicable Inpatient E&M: [id number] [facility]
--- NOTE | 2020-07-26 14:38 | PCM.DC ---
- Discharge Diagnoses Current Active Problems: Current Active and Chronic Problems (Last Reviewed 07/25/20 @ 04:[address] 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) H/O coronary artery bypass surgery (Chronic 06/16/97) CABGx 3 CASAS graft LAD, SVG-Ramus, SVG- RCA 06/16/1997 Paroxysmal atrial fibrillation (Chronic) Essential (primary) hypertension (Chronic) HLD (hyperlipidemia) (Chronic) You will use the following diet at home:: Cardiac Your food should be the consistency of: Regular Your liquids should be the consistency of: Regular/Thin Discharge Activity: Return to Normal Activity, No Restrictions, May Drive Allergies/Adverse Reactions: Allergies No Known Allergies Allergy (Verified 07/25/20 00:29) Medications to take at Discharge Aspirin [Aspir-Low] 81 mg PO QHS 06/22/17 Esomeprazole Mag Trihydrate [Nexium] 40 mg PO DAILY 06/22/17 [place]-3 Fatty Acids/Fish Oil [Fish Oil 1,000 mg Capsule] 1 ea PO DAILY 06/22/17 nitroglycerin 0.4 mg sublingual tablet 0.4 mg SUBLINGUAL Q5M PRN 09/13/17 ramipril 2.5 mg capsule 2.5 mg PO DAILY #90 cap 04/16/19 apixaban 5 mg tablet 5 mg PO BID #180 tab 11/10/19 atorvastatin 80 mg tablet 80 mg PO DAILY 11/10/19 metoprolol succinate 50 mg tablet,extended release 24 hr 50 mg PO DAILY #90 tab 05/16/20 Cholecalciferol (Vitamin D3) [Vitamin D3] 2,000 unit PO BID 07/25/20 Primary Care Physician: Elham Rodriguez MD [Primary Care Provider] - Please follow up with your Primary Care Physician in: 1-2 weeks --> call for an appt tomorrow for hospital f/u Test Results: Test results from this visit will be discussed in further detail at your follow-up appointment, if applicable.
--- NOTE | 2020-07-26 14:53 | CASEMGMT ---
BENITEZ FIELDS in to discuss WILEY form with patient. RN DIAMOND explained WILEY form to patient, patient voiced understanding. Patient signed WILEY form and filed in chart. BENITEZ FIELDS provided patient with copy of signed WILEY form. Patient had no further questions or concerns at this time.
[2020-07-26 15:36] VITALS: BP 162/77; PULSE 69; RESP 18; TEMP 37.1; O2SAT 98
== END 2020-07-26 18:49 | disposition home or self-care (01) ==
LOC: ED 01:48 → MS3 06:51
PROVIDERS: Admitting Provider Hospitalist; Emergency Provider Emergency Medicine; PCP Family Medicine; Visit Provider Internal Medicine
DX: K85.90 Acute pancreatitis without necrosis or infection, unspecified (principal); K29.80 Duodenitis without bleeding; K52.9 Noninfective gastroenteritis and colitis, unspecified; I44.1 Atrioventricular block, second degree; E78.5 Hyperlipidemia, unspecified; I48.0 Paroxysmal atrial fibrillation; I16.0 Hypertensive urgency; Z79.899 Other long term (current) drug therapy; Z79.01 Long term (current) use of anticoagulants; Z79.82 Long term (current) use of aspirin; I10 Essential (primary) hypertension; I25.10 Atherosclerotic heart disease of native coronary artery without angina pectoris; Z95.1 Presence of aortocoronary bypass graft; Z95.0 Presence of cardiac pacemaker; Z87.891 Personal history of nicotine dependence
CPT/HCPCS: 36415; 74176; 76705; 80048; 80053; 80061; 83690; 84484; 85025; 93005; 96361; 96365; 96366; 96375; 96376; 99218; 99284; J7030; J7120; A4216; G0378; J2405

== ENCOUNTER → 2020-08-03 15:51 | Outpatient (CLI) | payer MEDICARE, OTHER, SELFPAY ==
[2020-07-25 03:04] VITALS: BMI 28.8
[2020-08-03 18:10] LABS: Amylase 57 U/L (25-115); Lipase 177 U/L (73-393)
== END ==
PROVIDERS: PCP Family Medicine; Referring Provider Family Medicine; Visit Provider Family Medicine
DX: K85.90 Acute pancreatitis without necrosis or infection, unspecified (principal)
CPT/HCPCS: 36415; 82150; 83690

== ENCOUNTER 2020-08-18 11:18 | Outpatient (CLI) | payer MEDICARE, SELFPAY ==
[2020-08-18 11:30] VITALS: BP 127/62; PULSE 58; RESP 18; TEMP 37.2; O2SAT 95; BMI 27.6
[2020-08-18 12:46] VITALS: BP 120/60; PULSE 58; RESP 18; TEMP 36.7; O2SAT 94
[2020-08-18 13:17] VITALS: BP 137/60; PULSE 58; RESP 18; TEMP 36.7; O2SAT 100
[2020-08-18 13:48] VITALS: BP 134/66; PULSE 57; RESP 16; TEMP 36.6; O2SAT 100
[2020-08-18 14:23] VITALS: BP 147/62; PULSE 58; RESP 16; TEMP 36.6; O2SAT 99
== END 2020-08-18 14:29 | disposition home or self-care (01) ==
LOC: MS2OUT 11:19
PROVIDERS: PCP Family Medicine; Referring Provider Nurse Practitioner Acute Care; Visit Provider Nurse Practitioner Acute Care
DX: U07.1 COVID-19 (principal)
CPT/HCPCS: 96365; J7050; M0239; Q0239

== ENCOUNTER 2020-09-22 17:05 | Emergency (ER) | payer OTHER, MEDICARE, SELFPAY ==
[2020-09-22 17:07] VITALS: BP 136/77; PULSE 60; RESP 15; TEMP 36.7; O2SAT 95; BMI 29.5
--- NOTE | 2020-09-22 17:49 | EKG12_ITS ---
Test Reason : COUGH Blood Pressure : / mmHG Vent. Rate : 061 BPM Atrial Rate : 055 BPM P-R Int : 230 ms QRS Dur : 154 ms QT Int : 484 ms P-R-T Axes : 000 036 052 degrees QTc Int : 487 ms AV dual-paced rhythm with prolonged AV conduction Abnormal ECG Confirmed by FILIPPO BERNARD, BRUCE ([id number]), sports editor BJ MONTIEL ([id number]) on 09/26/2020 10:54:59 AM Referred By: CARMELO Confirmed By:KYLAH BARKLEY MD
[2020-09-22 17:52] VITALS: O2SAT 96
[2020-09-22] MEDS: Ipratropium/Albuterol Sulfate 3 ML AMPUL.NEB INHALATION (18:00)
[2020-09-22 18:07] VITALS: PULSE 70; RESP 18
--- NOTE | 2020-09-22 18:24 | RAD_ITS ---
STUDY: X-RAY CHEST REASON FOR EXAM: Male, 80 years old. pt arrives to ed with pneumonia. chest x-ray at ID in [place] diagnosed. covid-19 in july of this year. TECHNIQUE: AP portable COMPARISON: 06/22/2017 FINDINGS: There appears to be interstitial thickening with mildly diffusely increased parenchymal density peripherally more severe on the right which may be consistent with Covid 19 pneumonia. There is no demonstrated pleural abnormality. Heart is enlarged.. Normal mediastinum and rachna. Normal visualized pulmonary arteries. Normal visualized aortic arch and descending thoracic aorta. Postop change status post median sternotomy and CABG. Biventricular pacemaker noted. Normal visualized thoracic spine. Normal visualized ribs, clavicles, and shoulders. There is no demonstrated abnormality of the visualized soft tissue structures of the upper abdomen. RAD/Chest 1 View (Portable) IMPRESSION: Findings which may be consistent with mild Covid 19 pneumonia. Electronically Signed: Valentin Greenwood MD at 18:47 EST , Service support ,
[2020-09-22 18:41] LABS: ALB/GLOB Ratio 0.8 RATIO (0.9-2.4); AST(SGOT) 18 U/L (15-37); Alanine Aminotransfer ALT/SGPT 26 U/L (16-61); Albumin, Serum 3.1 g/dL (3.2-5.0); Alkaline Phosphatase 88 U/L (45-117); Anion Gap 4 (5-15); BUN 14 mg/dL (7-18); BUN/Creat Ratio 14.5 RATIO (10-20); Calcium,Total 8.7 mg/dL (8.5-10.1); Chloride 107 mmol/L (98-107); Creatinine, Serum 0.97 mg/dL (0.70-1.30); EST Glomerular Filtration Rate 79 mL/min (>60); Est Glom Filt Rate - Afr Amer 96 mL/min (>60); Estimated Creatinine Clearance 52.98 ml/min; Globulin 3.9 g/dL (2.2-4.2); Glucose 99 mg/dL (74-106); Sodium Level 138 mmol/L (136-145)
[2020-09-22 18:42] LABS: Absolute Lymphocyte Count 1.23 X10^3/uL (0.83-4.51); Absolute Neutrophil Count 4.8 X10^3/uL (2.0-7.7); Basophil# 0.07 X10^3/uL; Basophil% 0.9 % (0-1); Eosinophil# 0.23 X10^3/uL; Eosinophils% 2.9 % (0-5); Hematocrit 41.6 % (40-54); Hemoglobin 13.4 g/dL (13.0-16.5); Lymphocyte # 1.23 X10^3/ul (4.0); Lymphocyte % 15.5 % (19-41); Mean Corp Hgb Conc 32.2 g/dL (32-36); Mean Corpuscular Hgb 30.9 pg (27.0-32.0); Mean Corpuscular Volume 95.9 fL (80-94); Mean Platelet Vol. 10.9 fl (6.2-12.0); Monocyte# 1.64 X10^3/uL; Monocyte% 20.6 % (0-10); NRBC Flagged by Analyzer 0 % (0-5); Neutrophil # 4.75 X10^3/uL (2.7-7.7); Neutrophil % 59.6 % (47-70); POSITIVE DIFFERENTIAL YES; Platelet Count 158 K/mm3 (150-450); RBC Distribution Width CV 13.2 % (11.6-14.6); RBC Distribution Width SD 46.5 fl (35.1-43.9); Red Blood Count 4.34 M/mm3 (4.6-6.2)
[2020-09-22 18:45] LABS: D-Dimer Quantitative (DVT/PE) 0.43 FEU/ug/m (0.27-0.49)
[2020-09-22 18:51] LABS: Differential Indicated SCAN CRITERIA MET
[2020-09-22 18:59] LABS: Lactic Acid 1.5 mmol/L (0.4-1.9)
[2020-09-22 19:29] VITALS: BP 174/77; PULSE 67; RESP 18; TEMP 36.1; O2SAT 97; O2SAT 98
[2020-09-22 19:53] LABS: Anisocytosis RARE; Macrocytosis RARE; Platelet Estimate ADEQUATE (ADEQ); Red Cell Morphology N CHROM NORMAL (NORM C&C); Toxic Granulation RARE
--- NOTE | 2020-09-22 20:08 | ED.DCSUM_ITS ---
- ER Visit Summary Date of Service: 09/22/20 Chief Complaint: Abnormal chest x-ray History of Present Illness: The patient is a 80 M [facility] which showed pneumonia. Patient states his doctor advised him to come to the ED today. He was diagnosed with Covid in late July. He states he actually feels well today. He has mild shortness of breath and mild cough. He has mild chest pain with deep inspiration. No chest pain without deep inspiration. He denies fever. Denies other complaints. Physical Examination: Vitals are stable. Patient is afebrile. Alert no acute distress. HEENT exam is unremarkable. Neck is supple. Lungs are clear and equal bilaterally. Heart is regular rate and rhythm. Abdomen is soft nontender nondistended. Extremities are unremarkable. Skin is warm and dry. No focal neurologic deficit. Remainder of exam is unremarkable. Emergency Department Course and Treatment: EKG is paced rhythm rate of 61. Chest x-ray shows findings which may be consistent with mild Covid 19 pneumonia. CBC, chemistries unremarkable. D-dimer negative. Lactic acid normal. Troponin negative. Pulse ox is 98% with ambulation. Patient states he actually feels well. Delta troponin is obtained and is negative. Patient is comfortable with discharge home. Advised to follow-up with primary care physician. Advised return to ED for worsening complaints. Disposition: Discharge home Impression: Mild Covid pneumonia This note was generated with [employer] dictation software. It may contain incorrect words, spelling, and punctuation that were not noted in review of the chart prior to signing ED Disposition - Plan for ED Patient: Referrals: Elham Rodriguez MD [Primary Care Provider] -
[2020-09-22 21:31] VITALS: BP 174/77; PULSE 60; RESP 16; O2SAT 96
--- NOTE | 2020-09-22 22:18 | ED.DEP ---
ED Disposition - Plan for ED Patient: Instructions: Coronavirus Disease 2019 (COVID-19): Overview Referrals: Elham Rodriguez MD [Primary Care Provider] -
[2020-09-23 11:40] LABS: Pathologist Review Reviewed
== END 2020-09-22 22:22 | disposition home or self-care (01) ==
PROVIDERS: Emergency Provider Emergency Medicine; PCP Family Medicine
DX: U07.1 COVID-19 (principal); J12.82 Pneumonia due to coronavirus disease 2019; I25.10 Atherosclerotic heart disease of native coronary artery without angina pectoris
CPT/HCPCS: 71045; 80053; 83605; 84484; 85025; 85379; 93005; 94640; 99284; A4216

== ENCOUNTER → 2021-01-26 14:26 | Outpatient (CLI) | payer MEDICARE, OTHER, SELFPAY ==
[2021-01-26 14:21] VITALS: BMI 27.8
[2021-01-26 15:49] LABS: Anion Gap 7 (5-15); BNP,B-Type NATRIURETIC PEPTIDE 130.8 pg/mL (0-100); BUN 14 mg/dL (7-18); BUN/Creat Ratio 11.8 RATIO (10-20); Calcium,Total 8.8 mg/dL (8.5-10.1); Chloride 104 mmol/L (98-107); Creatinine, Serum 1.19 mg/dL (0.70-1.30); EST Glomerular Filtration Rate 62 mL/min (>60); Est Glom Filt Rate - Afr Amer 75 mL/min (>60); Glucose 83 mg/dL (74-106); Sodium Level 140 mmol/L (136-145)
== END ==
PROVIDERS: PCP Family Medicine; Referring Provider Nurse Practitioner Family; Visit Provider Nurse Practitioner Family
DX: R06.00 Dyspnea, unspecified (principal); I25.10 Atherosclerotic heart disease of native coronary artery without angina pectoris; I48.0 Paroxysmal atrial fibrillation; I10 Essential (primary) hypertension; E78.5 Hyperlipidemia, unspecified; Z95.0 Presence of cardiac pacemaker; Z95.1 Presence of aortocoronary bypass graft
CPT/HCPCS: 36415; 80048; 83880

== ENCOUNTER → 2021-08-22 07:23 | Outpatient (CLI) | payer MEDICARE, SELFPAY ==
--- NOTE | 2021-08-22 12:30 | STRESSREP ---
Stress Test Report Pharmacologic myocardial perfusion stress test. 81-year-old man with a history of coronary artery disease. Medications aspirin apixaban atorvastatin pantoprazole ramipril metoprolol. Stress protocol: Resting EKG demonstrates atrial fibrillation with a paced ventricular rhythm at 61 bpm. 0.4 mg of regadenoson was infused per usual protocol followed by rapid intravenous saline flush injection continuous EKG monitoring was performed. The maximum heart rate attained was 71 bpm which was 51% of maximum predicted heart rate the maximum workload was 1 metabolic equivalent. At rest there were no ST or T wave changes noted to suggest abnormal flow reserve and at peak infusion nonspecific ST changes were noted. Paced rhythm beats were noted. The peak blood pressure is 140/72 mmHg. Myocardial perfusion protocol. 11.0 mCi of technetium 99m sestamibi was injected at rest. 0.4 mg of regadenoson was infused per usual protocol. At peak infusion 35.0 mCi of technetium 99m sestamibi was injected stress images were obtained stress and rest images were reconstructed and compared in the short axis vertical long horizontal long axis gated images were also obtained. Perfusion SPECT analysis. Review of the stress and resting images demonstrate normal uptake of region noted in all areas of the myocardium. The resting images similarly demonstrate normal uptake of agent in all areas of the myocardium. No areas of reversibility are noted to suggest ischemia and no previous infarct is noted. Gated SPECT analysis: The gated ejection fraction is noted to be 72%. Conclusion: Normal pharmacologic myocardial perfusion stress test. Preserved ejection fraction.
== END ==
PROVIDERS: PCP Family Medicine; Referring Provider Internal Medicine Cardiovascular Disease; Visit Provider Internal Medicine Cardiovascular Disease
DX: R07.9 Chest pain, unspecified (principal); Z95.1 Presence of aortocoronary bypass graft
CPT/HCPCS: 78452; 93017; A9500; A4216; J2785

== ENCOUNTER → 2022-10-08 | Outpatient (CLI) | payer MEDICARE, SELFPAY ==
--- NOTE | 2022-10-08 17:24 | RAD_ITS ---
EXAM: XR LEFT HIP WITH PELVIS WHEN PERFORMED, 1 VIEW CLINICAL INDICATION: PAIN TECHNIQUE: Frontal view of the left hip with pelvis when performed. This report was created using [employer] report generation technology. COMPARISON: None. FINDINGS: BONES/JOINTS: Right total hip arthroplasty with satisfactory alignment and no complications or failure. Mild degenerative changes at the left hip for age. Sacroiliac joint is unremarkable. No widening of the pubic symphysis. No acute or healing fracture or malalignment. No unusual lytic or sclerotic lesions of bone. SOFT TISSUES: Unremarkable. No soft tissue swelling or gas. RAD/HIP, UNI W/ Pelvis 2-3 Views IMPRESSION: 1. No acute or healing fracture or malalignment. 2. Mild degenerative changes at the left hip for age. Electronically Signed: Mushtaq Cueto MD at 1:38 EST ,
--- NOTE | 2022-10-08 17:24 | RAD_ITS ---
EXAM: XR LUMBOSACRAL SPINE, 4 OR 5 VIEWS CLINICAL INDICATION: PAIN TECHNIQUE: Frontal, lateral and bilateral oblique views of the lumbar spine. This report was created using [employer] report [employer] technology. COMPARISON: None. FINDINGS: VERTEBRAE: Unremarkable. Preserved vertebral body height. No fracture. Preservation of the normal lumbar lordosis. No significant facet arthropathy. No pars interarticularis defects. No unusual lytic or sclerotic lesions of bone. No spondylolisthesis. DISC SPACES: Multilevel [id number]-fv-[id number] degenerative changes which are worse at L4-5. VASCULATURE: Atherosclerotic calcifications aorta and iliac arteries without aneurysm. GASTROINTESTINAL TRACT: Unremarkable as visualized. Included bowel gas pattern is non-obstructive. Normal bowel gas pattern. OTHER FINDINGS: Right total hip arthroplasty identified, incompletely imaged. RAD/L/S Spine Min 4 Views IMPRESSION: Multilevel spine degenerative changes, worse at L4-5 where there is moderate degenerative disease and facet arthrosis. Electronically Signed: Mushtaq Cueto MD at 23:41 EST Reading Location ID and State: [facility] / [place] Tel , Service support ,
== END | disposition home or self-care (01) ==
PROVIDERS: PCP Family Medicine; Referring Provider Family Medicine; Visit Provider Family Medicine
DX: M54.50 Low back pain, unspecified (principal); M24.552 Contracture, left hip
CPT/HCPCS: 72110; 73502

== ENCOUNTER → 2023-04-04 | Outpatient (CLI) | payer MEDICARE, SELFPAY ==
--- NOTE | 2023-04-04 10:35 | RAD_ITS ---
INDICATION: for PPM generator change on 05/06/23 EXAMINATION/TECHNIQUE: X-RAY - XR Chest 2 Views COMPARISON: September 22, 2020. FINDINGS: LINES/DEVICES: 2-lead left chest cardiac pacer. Midline sternotomy wires are intact.. LUNGS: Perihilar and basilar interstitial coarsening and mild edema. No consolidation or effusion. No pneumothorax. MEDIASTINUM AND CARDIOVASCULAR STRUCTURES: Unchanged cardiomegaly. BONES AND SOFT TISSUES: Unremarkable. RAD/Chest PA and Lateral IMPRESSION: Cardiomegaly and pacer with trace perihilar and basilar interstitial edema. No significant effusion or evidence of consolidative airspace disease. Electronically Signed: Arik Ramos MD at 0:38 EDT ,
[2023-04-04 10:51] LABS: Bacteria 0 SEEN /hpf (None Seen); Mucous, Urine 0 SEEN /hpf (<or=2+); Red Blood Cells-Urine 0 SEEN /hpf (0-5); Squamous Epithelial Cells - UA 0 SEEN /hpf (0-5); White Blood Cells 0 SEEN /hpf (0-5)
[2023-04-04 11:25] LABS: Color, Urine Yellow (Yellow); Glucose, Dipstick Normal (Normal); Hematocrit 47.2 % (40-54); Hemoglobin 14.8 g/dL (13.0-16.5); Ketone-Dipstick Negative (Negative); Leukocyte Esterase-Dipstick Negative /ul (Negative); Mean Corp Hgb Conc 31.4 g/dL (32-36); Mean Corpuscular Hgb 30.7 pg (27.0-32.0); Mean Corpuscular Volume 97.9 fL (80-94); Mean Platelet Vol. 11.4 fl (6.2-12.0); Nitrite-Dipstick Negative (Negative); Occult Blood-Urine Negative /ul (Negative); Platelet Count 158 K/mm3 (150-450); Protein-Dipstick Negative (Negative); RBC Distribution Width CV 12.4 % (11.6-14.6); RBC Distribution Width SD 44.4 fl (35.1-43.9); Red Blood Count 4.82 M/mm3 (4.6-6.2); Urine Bilirubin Dipstick Negative (Negative); Urine Clarity Clear (Clear); Urine Urobilinogen Normal (Normal)
[2023-04-04 11:35] LABS: International Normalized Ratio 1.5; Prothrombin Time (Protime)PT. 17.7 SECONDS (11.7-14.9)
[2023-04-04 11:53] LABS: Anion Gap 5 (5-15); BUN 20 mg/dL (7-18); BUN/Creat Ratio 15.9 RATIO (10-20); Calcium,Total 9.3 mg/dL (8.5-10.1); Chloride 100 mmol/L (98-107); Creatinine, Serum 1.26 mg/dL (0.70-1.30); EST Glomerular Filtration Rate 58 mL/min (>60); Est Glom Filt Rate - Afr Amer 70 mL/min (>60); Glucose 109 mg/dL (74-106); Potassium 4.7 mmol/L (3.5-5.1); Sodium Level 134 mmol/L (136-145)
== END | disposition home or self-care (01) ==
LOC: RAD 10:34
PROVIDERS: PCP Family Medicine; Referring Provider Internal Medicine Cardiovascular Disease; Visit Provider Internal Medicine Cardiovascular Disease
DX: I25.10 Atherosclerotic heart disease of native coronary artery without angina pectoris (principal); I44.1 Atrioventricular block, second degree; Z95.0 Presence of cardiac pacemaker
CPT/HCPCS: 36415; 71046; 80048; 81001; 85027; 85610

== ENCOUNTER 2023-05-06 11:04 | Day surgery (SDC) | payer MEDICARE, SELFPAY ==
[2023-05-03 09:43] VITALS: BMI 28.8
--- NOTE | 2023-05-06 13:22 | CL.IE_ITS ---
Patient: RAMONA STRONG Study Date: 05/06/2023 Performing: Delgado Lala MD : [id number] Age: 82 Gender: male PROCEDURES PERFORMED [id number])BATTERY REMOVAL+REPLACEMENT PACER-DUAL LEAD INDICATIONS Mobitz (type II) AV block PROCEDURE DETAILS The patient was brought to the Catheterization Lab in the postabsorptive nonsedated state. Informed consent was obtained prior to the procedure. Local anesthetic was given subcutaneously to the left upper chest area with Lidocaine 2%. Incision was made to the left subclavicular area. PPM ventricular lead (existing) was checked and tested. PPM generator was removed. PPM generator was attached to the lead(s) and inserted into the pocket. Device pocket was irrigated with antibiotic. Subcutaneous closure was completed with 3-0 Vicryl. Skin closure was completed with 4-0 Vicryl. Steri-strips applied to left subclavicular incision. Instrument, sponge, and needle counts were noted to be normal. The patient tolerated the procedure well. Estimated Blood Loss: 15 ml's IMPLANTED / EX-PLANTED DEVICES IMPLANTED DEVICE(S): PPM Generator - Hospice Home Care Coordinator: [employer] Model # [employer] MRI DR Model L111 , Serial # [id number] LOT # [id number] DEVICE PARAMETERS ATRIAL LEAD PARAMETERS: P wave- 3.4 (mV) Current- 1.8 (mA) threshold- 0.8 (V) impedence- 435 (OHMS) VENTRICULAR LEAD PARAMETERS: R wave- 3.5 (mV) Current- 0.8 (mA) threshold- 0.4 (V) impedence- 480 (OHMS) DEVICE PARAMETERS: Mode- DDDR Lower rate- 60 Upper rate- 130 CONCLUSIONS / RECOMMENDATIONS Device Conclusions: Successful implantation of a dual chamber pacemaker battery change and replacement Device Recommendations: Follow up with Primary Care Physician PROCEDURE MEDICATIONS Versed 1 mg IV Fentanyl 50 mcg IV Oxygen: 1 L/min via nasal cannula-as per home Antibiotic given in appropriate timeframe. Ancef 2 Gm IV @ 05/06/2023 11:50:10 Signed By Delgado Lala MD On 05/06/2023 13:21:32 Delgado Lala MD
== END 2023-05-06 15:00 | disposition home or self-care (01) ==
LOC: CLSP 11:07
PROVIDERS: PCP Family Medicine; Referring Provider Internal Medicine Cardiovascular Disease; Visit Provider Internal Medicine Cardiovascular Disease
DX: Z95.0 Presence of cardiac pacemaker (principal); I48.0 Paroxysmal atrial fibrillation; I44.30 Unspecified atrioventricular block; G47.33 Obstructive sleep apnea (adult) (pediatric); E78.5 Hyperlipidemia, unspecified; I10 Essential (primary) hypertension; Z79.01 Long term (current) use of anticoagulants; Z79.82 Long term (current) use of aspirin; Z79.899 Other long term (current) drug therapy; Z86.16 Personal history of COVID-19; Z95.1 Presence of aortocoronary bypass graft; Z87.891 Personal history of nicotine dependence
CPT/HCPCS: 33228; 99152; 99153; J7040; J7050

== ENCOUNTER → 2023-09-09 | Outpatient (CLI) | payer MEDICARE, SELFPAY ==
--- NOTE | 2023-09-09 16:15 | RAD_ITS ---
EXAM: XR CHEST, 2 VIEWS CLINICAL INDICATION: dyspnea TECHNIQUE: Frontal and lateral views of the chest. COMPARISON: 04/04/2023 FINDINGS: LUNGS AND PLEURAL SPACES: Diffuse interstitial pulmonary opacities bilaterally similar to the prior examination with peripheral reticular opacities likely secondary to chronic interstitial changes, perhaps fibrotic changes. No pneumothorax. No effusion. HEART: Status post CABG. MEDIASTINUM: Central airways and mediastinal contour are unremarkable. BONES/JOINTS: Median sternotomy. No acute fracture. SOFT TISSUES: No significant abnormality. VASCULATURE: Atherosclerosis. TUBES, LINES AND DEVICES: Left-sided cardiac pacer. RAD/Chest PA and Lateral IMPRESSION: 1. Diffuse interstitial pulmonary opacities bilaterally similar to the prior examination with peripheral reticular opacities likely secondary to chronic interstitial changes, perhaps fibrotic changes. A superimposed pneumonia cannot be entirely excluded. 2. Status post CABG. Electronically Signed: Mickey Noriega DO at 17:52 EST ,
[2023-09-09 17:41] LABS: Absolute Lymphocyte Count 0.44 X10^3/uL (0.83-4.51); Absolute Neutrophil Count 6.9 X10^3/uL (2.0-7.7); Basophil# 0.06 X10^3/uL; Basophil% 0.7 % (0-1); Eosinophil# 0.05 X10^3/uL; Eosinophils% 0.6 % (0-5); Hemoglobin 13.5 g/dL (13.0-16.5); Lymphocyte # 0.44 X10^3/ul (0.83-4.51); Lymphocyte % 5.4 % (19-41); Mean Corp Hgb Conc 31.4 g/dL (32-36); Mean Corpuscular Hgb 31.1 pg (27.0-32.0); Mean Corpuscular Volume 99.1 fL (80-94); Mean Platelet Vol. 12.1 fl (6.2-12.0); Monocyte# 0.58 X10^3/uL; Monocyte% 7.1 % (0-10); NRBC Flagged by Analyzer 0 % (0-5); Neutrophil # 6.91 X10^3/uL (2.7-7.7); Neutrophil % 84.9 % (47-70); POSITIVE COUNT YES; POSITIVE DIFFERENTIAL YES; Platelet Count 76 K/mm3 (150-450); RBC Distribution Width CV 12.5 % (11.6-14.6); RBC Distribution Width SD 45.1 fl (35.1-43.9); Red Blood Count 4.34 M/mm3 (4.6-6.2); White Blood Count 8.2 K/mm3 (4.4-11.0)
[2023-09-09 18:11] LABS: Differential Comment SCANNED; Differential Indicated SCAN CRITERIA MET
[2023-09-09 18:18] LABS: ALB/GLOB Ratio 0.7 RATIO (0.9-2.4); AST(SGOT) 27 U/L (15-37); Alanine Aminotransfer ALT/SGPT 40 U/L (16-61); Albumin, Serum 2.9 g/dL (3.2-5.0); Alkaline Phosphatase 86 U/L (45-117); Anion Gap 6 (5-15); BUN 19 mg/dL (7-18); BUN/Creat Ratio 15.8 RATIO (10-20); Calcium,Total 8.8 mg/dL (8.5-10.1); Chloride 100 mmol/L (98-107); EST Glomerular Filtration Rate 61 mL/min (>60); Est Glom Filt Rate - Afr Amer 74 mL/min (>60); Glucose 139 mg/dL (74-106); Potassium 4.9 mmol/L (3.5-5.1); Protein, Total 6.9 g/dL (6.4-8.2); Sodium Level 134 mmol/L (136-145); Thyroid Stim Hormone (TSH) 0.94 uIU/mL (0.358-3.74)
== END | disposition home or self-care (01) ==
LOC: MTRAD 16:09
PROVIDERS: PCP Family Medicine; Referring Provider Family Medicine; Visit Provider Family Medicine
DX: R06.00 Dyspnea, unspecified (principal); Z87.09 Personal history of other diseases of the respiratory system
CPT/HCPCS: 36415; 71046; 80053; 84443; 85025

== ENCOUNTER → 2023-09-13 | Outpatient (CLI) | payer MEDICARE, SELFPAY ==
--- OUTSIDE RECORDS SUMMARY | 2023-09-13 13:54 | XMS RPT_ITS | CCD ---
Author Name Unknown Address [id number] [place] [address] Organization [facility] Care Team Providers Care 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 Name Role Phone Cee Ochoa Unavailable Cee Ochoa Unavailable [place] Unavailable Unavailable BENITEZ Rich, Odalis M Unavailable Unavailable BENITEZ Rich, Odalis M Unavailable Unavailable BENITEZ Rich, Odalis M Unavailable Unavailable BENITEZ Rich, Odalis M Unavailable Unavailable Guillaume Doyle Attending Unavailable Elham Rodriguez Primary Care Unavailable Ju MARQUIS, Kandis Frias Unavailable Unavailable Cee Ochoa Unavailable Pending Provider Unavailable Unavailable Unavailable Unavailable Elham Rodriguez MD Primary Care Provider Pending, Provider Primary Care Unavailable Michael, Dr. Elham Flannery Attending Unavail able Pending, Provider Primary Care Unavailable Michael, Dr. Elham Flannery Attending Unavail able Pending, Provider Primary Care Unavailable Michael, Dr. Elham Flannery Attending Unavail able Pending, Provider Primary Care Unavailable Michael, Dr. Elham Flannery Attending Unavail able Pending, Provider Primary Care Unavailable Dr. Elham Rodriguez Attending Unavail able Pending, Provider Primary Care Unavailable Dr. Elham Rodriguez Attending Unavail able Pending, Provider Primary Care Unavailable Michael, Dr. Elham Flannery Attending Unavail able Pending, Provider Primary Care Unavailable Michael, Dr. Elham Flannery Attending Unavail able Dr. Elham Rodriguez Attending Unavail able Pending, Provider Primary Care Unavailable Elham Rodriguez MD Primary Care Provider DUNCAN VALDEZ Referring Unavaila ble JOLLIFF, ELHAM PÉREZ Primary Care Unavailable COURTNEY, DUNCAN SANCHEZ Attending Unavaila ble COURTNEY, DUNCAN SANCHEZ Referring Unavaila ble JOLLIFF, ELHAM PÉREZ Primary Care Unavailable COURTNEY, DUNCAN SANCHEZ Attending Unavaila ble JOLLIFF, ELHAM PÉREZ Primary Care Unavailable COURTNEY, DUNCAN SANCHEZ Attending Unavaila ble COURTNEY, DUNCAN SANCHEZ Referring Unavaila ble EVERARDO, MARY REILLY Admitting Unavailable EVERARDO, MARY REILLY Referring Unavailable JOLLIFF, ELHAM PÉREZ Primary Care Unavailable BELA PEPPER Attending Unavailable JOLLIFF, ELHAM PÉREZ Primary Care Unavailable SYSTEM, PROVIDER NOT IN Referring Unavaila ble SYSTEM, PROVIDER NOT IN Attending Unavaila ble JOLLIFF, ELHAM PÉREZ Primary Care Unavailable COURTNEY, DUNCAN SANCHEZ Attending Unavaila ble JOLLIFF, ELHAM PÉREZ Primary Care Unavailable COURTNEY, DUNCAN SANCHEZ Attending Unavaila ble JOLLIFF, ELHAM PÉREZ Primary Care Unavailable COURTNEY, DUNCAN SANCHEZ Attending Unavaila ble JOLLIFF, ELHAM PÉREZ Primary Care Unavailable COURTNEY, DUNCAN SANCHEZ Attending Unavaila ble JOLLIFF, ELHAM PÉREZ Primary Care Unavailable COURTNEY, DUNCAN SANCHEZ Attending Unavaila ble JOLLIFF, ELHAM PÉREZ Primary Care Unavailable COURTNEY, DUNCAN SANCHEZ Attending Unavaila ble JOLLIFF, ELHAM PÉREZ Primary Care Unavailable FRANCINE SHAFFER Attending Unavailable JOLLIFF, ELHAM PÉREZ Primary Care Unavailable FRANCINE SHAFFER Attending Unavailable NURYS WING Attending Unava ilable JOLLIFF, ELHAM PÉREZ Primary Care Unavailable MARY JACOB Attending Unavailab le MARY JACOB Referring Unavailab le JOLLIFF, ELHAM PÉREZ Primary Care Unavailable Allergies Allergy Classification Reported Allergen(s) Allergy Type Date of Onset Reaction(s) Facility (9 sources) atorvastatin drug allergy 1 Myalgias [facility] Work Phone: (1 source) No Known Medication Allergies; Translations: [No Known Medication Allergies] Propensity to adverse reactions to drug (disorder) [facility] Repository (12 sources) atorvastatin; Translations: [ATORVASTATIN] Drug Allergy [address] [facility] Medications Current Medications Medication Drug Class(es) Dates Sig (Normalized) Sig (Original) albuterol 0.833 mg/ml / ipratropium bromide 0.167 mg/ml inhalation solution (5 sources) Anticholinergic, beta2-Adrenergic Agonist Start: 05-02-2023 End: 05-01-2024 take 3 mL by inhalation every six hours as needed for wheezing and chronic obstructive pulmonary disease and chronic obstructive pulmonary disease ipratropium-albuter oL (DUO-NEB) 0.5-2.5 mg/3 ml nebulizer Indications: Chronic obstructive pulmonary disease, unspecified COPD type (HCC) Take 3 mL by nebulization every 6 (six) hours as needed for wheezing . 270 mL 11 05/02/2023 05/01/2024 Active apixaban 5 mg oral tablet (18 sources) Factor Xa Inhibitor apixaban (ELIQUIS) 5 mg Tab Take by mouth . 0 Active Completed/Discontinued Medications Medication Drug Class(es) Dates Sig (Normalized) Sig (Original) aspirin 81 mg oral tablet (20 sources) Nonsteroidal Anti-inflammatory Drug Start: 01-08-2011 take 1 tablet by mouth once daily ASPIRIN 81 MG TABS One tablet by mouth daily ASPIRIN [id number] Carla Singer Problems Active Problems Problem Classification Problem Date Documented Da te Episodic/Chronic Cardiac dysrhythmias (19 sources) Atrial fibrillation; Translations: [Paroxysmal atrial fibrillation] Onset: 1 01-08-2011 Chronic Chronic obstructive pulmonary disease and bronchiectasis (1 source) Chronic obstructive lung disease; Translations: [Chronic obstructive pulmonary disease, unspecified] 05-02-2023 Chronic Conduction disorders (18 sources) Cardiac pacemaker in situ; 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] Onset: 1 01-08-2011 Chronic Coronary atherosclerosis and other heart disease (20 sources) Atherosclerotic heart disease of [place] coronary artery without angina pectoris; Translations: [Coronary arteriosclerosis] Onset: 1 Resolved: 6 03-29-2016 Chronic Disorders of lipid metabolism (9 sources) Hyperlipidemia; Translations: [Hyperlipidemia, unspecified] Onset: 1 01-08-2011 Chronic Essential hypertension (9 sources) Hypertensive disorder; Translations: [Essential (primary) hypertension] Onset: 01-08-2011 Chronic Genitourinary symptoms and ill-defined conditions (7 sources) Nocturia; Translations: [Nocturia] Episodic Hyperplasia of prostate (7 sources) Benign prostatic hypertrophy without outflow obstruction; Translations: [Hypertrophy (benign) of prostate without urinary obstruction and other lower urinary tract symptom (LUTS)] Chronic Inflammatory conditions of male genital organs (7 sources) Balanitis; 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 Mycoses (2 sources) Candidal stomatitis; Translations: [Candidal stomatitis] Onset: 3 Episodic Osteoarthritis (7 sources) Osteoarthritis of bilateral hip joints; Translations: [Osteoarthrosis, unspecified whether generalized or localized, pelvic region and thigh] Onset: 3 Chronic Other ear and sense organ disorders (1 source) Sensorineural hearing loss, bilateral; Translations: [Sensorineural hearing loss, bilateral] Chronic Other gastrointestinal disorders (1 source) Dysphagia; Translations: [Dysphagia, unspecified] 01-30-2023 Episodic Other lower respiratory disease (3 sources) Fibrosis of lung; Translations: [Pulmonary fibrosis, unspecified] 12-06-2022 Chronic Other lower respiratory disease (3 sources) Idiopathic pulmonary fibrosis; Translations: [Idiopathic pulmonary fibrosis] 02-28-2023 Chronic Other lower respiratory disease (4 sources) Pulmonary fibrosis, unspecified; Translations: [Pulmonary fibrosis, unspecified] Onset: 3 Chronic Other lower respiratory disease (1 source) Dyspnea; Translations: [Shortness of breath] 08-08-2023 Episodic Other lower respiratory disease (2 sources) Shortness of breath; Translations: [Shortness of breath] Onset: 3 Episodic Other male genital disorders (7 sources) Male erectile dysfunction, unspecified; Translations: [Erectile dysfunction] Chronic Other nervous system disorders (7 sources) Impairment of balance; Translations: [Other symptoms involving nervous and musculoskeletal systems] Episodic Respiratory failure; insufficiency; arrest (adult) (3 sources) Chronic hypoxemic respiratory failure; Translations: [Chronic respiratory failure with hypoxia] Onset: 3 01-30-2023 Chronic Spondylosis; intervertebral disc disorders; other back problems (7 sources) Lumbosacral spondylosis; Translations: [Lumbosacral spondylosis without myelopathy] Onset: 3 Chronic Unclassified (4 sources) Long-term drug therapy; Translations: [Other technician terminal and repeater (current) drug therapy] Onset: 1 01-08-2011 Unclassified (4 sources) 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; Translations: [Presence of aortocoronary bypass graft] Onset: 1 03-20-2017 Unclassified (2 sources) Longstanding persistent atrial fibrillation; Translations: [Longstanding persistent atrial fibrillation] Onset: 3 Unclassified (2 sources) Consult Onset: 3 Past or Other Problems Problem Classification Problem Date Documented Date Episodic/Chronic Conditions associated with dizziness or vertigo (20 sources) Dizziness; Translations: [Dizziness and giddiness] Onset: 2 Episodic Coronary atherosclerosis and other heart disease (20 sources) Presence of aortocoronary bypass graft; Translations: [Presence of aortocoronary bypass graft] Onset: 1 03-20-2017 Episodic Other aftercare (5 sources) Other technician terminal and repeater (current) drug therapy; Translations: [Other technician terminal and repeater (current) drug therapy] Onset: 1 01-08-2011 Episodic Other circulatory disease (15 sources) Electrocardiogram abnormal; Translations: [Abnormal electrocardiogram [ECG] [EKG]] Onset: 1 Resolved: 7 03-20-2017 Episodic Other nutritional; endocrine; and metabolic disorders (9 sources) Body mass index (BMI) 29.0-29.9, adult; Translations: [Body mass index (BMI) 29.0-29.9, adult] Onset: 4 02-19-2014 Episodic Unclassified (9 sources) FH: Hypertension; Translations: [Family history of ischemic heart disease and other diseases of the circulatory system] 08-23-2014 Episodic Results Test Name Value Interpretation Reference Range Facil ity Vital Signs Date Time Vital Sign Value Performing Clinician Janny chin 07-26-2023 11:08-0500 Body height 170.2 cm Duncan Valdez MD Work Phone: [facility] 07-26-2023 11:08-0500 Body mass index (BMI) [Ratio] 29.84 kg/m2 Duncan Valdez MD Work Phone: [facility] 07-26-2023 11:08-0500 Body temperature 98.71 [degF] Duncan Valdez MD Work Phone: [facility] 07-26-2023 11:08-0500 Body weight 86.41 kg Duncan Valdez MD Work Phone: [facility] 07-26-2023 11:08-0500 Diastolic blood pressure 63 mm[Hg] Duncan Valdez MD Work Phone: [facility] 07-26-2023 11:08-0500 Heart rate 61 /min Duncan Valdez MD Work Phone: [facility] 07-26-2023 11:08-0500 SaO2% (BldA) [Mass fraction] 95 % Duncan Valdez MD Work Phone: [facility] Encounters Encounter Date Encounter Type Care Provider Facility Start: 08-27-2023 Orders Only Mary Brandan palacios WATER QUALITY SPECIALIST Work Phone: [facility] Procedures Date Procedure Procedure Detail Performing Clinician Start: 07-25-2017 End: 07-25-2017 Program eval implantable in persn dual ld pacer Deglado Lala MD Start: 03-26-2017 End: 03-27-2017 Program eval implantable in persn dual ld pacer Delgado Lala MD Start: 03-26-2017 End: 03-27-2017 Pm device progr eval, dual Delgado Lala MD Start: 12-27-2016 End: 12-27-2016 Program eval implantable in persn dual ld pacer Delgado Lala MD Start: 12-27-2016 End: 12-27-2016 Pm device progr eval, dual Delgado Lala MD Start: 09-25-2016 End: 09-25-2016 Follow Up Appt 6 months Dontae Molina Start: 09-25-2016 End: 09-25-2016 MMM Delgado Lala MD Start: 09-25-2016 End: 09-25-2016 Program eval implantable in persn dual ld pacer Delgado Lala MD Start: 09-25-2016 End: 09-25-2016 Follow Up Appt 6 months Dontae Molina Start: 09-25-2016 End: 09-25-2016 AIDAN Lala MD Start: 09-25-2016 End: 09-25-2016 Pm device progr kaleighal, dual Delgado Lala MD Start: 08-27-2016 End: 10-02-2016 *Hepatic Function Panel Katie banuelos PA-C Work Phone: Start: 08-27-2016 End: 10-02-2016 Lipid 1996 panel - Serum or Plasma Katie Nuno PA-C Work Phone: Start: 08-27-2016 End: 10-02-2016 *Hepatic Function Panel Katie banuelos PA-C Work Phone: Start: 08-27-2016 End: 10-02-2016 Lipid panel [AGGREGATE] Katie banuelos PA-C Work Phone: Start: 07-05-2016 End: 07-05-2016 Program eval implantable in persn dual ld pacer Delgado Lala MD Start: 07-05-2016 End: 07-05-2016 Pm device progr eval, dual Delgado Lala MD Start: 03-29-2016 End: 03-29-2016 Follow Up Appt 6 months Dontae Molina Start: 03-29-2016 End: 03-29-2016 AIDAN Lala MD Start: 03-29-2016 End: 03-29-2016 Program eval implantable in persn dual ld pacer Delgado Lala MD Start: 03-29-2016 End: 03-29-2016 Follow Up Appt 6 months Dontae Molina Start: 03-29-2016 End: 03-29-2016 MMM Delgado Lala MD Start: 03-29-2016 End: 03-29-2016 Pm device progr eval, dual Delgado Lala MD Start: 02-07-2016 End: 02-24-2016 *Hepatic Function Panel Katie banuelos PA-C Work Phone: Start: 02-07-2016 End: 02-24-2016 Lipid 1996 panel - Serum or Plasma Katie Nuno PA-C Work Phone: Start: 02-07-2016 End: 02-24-2016 *Hepatic Function Panel Katie banuelos PA-C Work Phone: Start: 02-07-2016 End: 02-24-2016 Lipid panel [AGGREGATE] Katie banuelos PA-C Work Phone: Start: 12-22-2015 End: 12-22-2015 Program eval implantable in persn dual ld pacer Delgado Lala MD Start: 12-22-2015 End: 12-22-2015 Pm device progr eval, dual Delgado Lala MD Start: 09-15-2015 End: 09-15-2015 DECKER OPERATOR Katie Nuno PA-C Work Phone: Start: 09-15-2015 End: 09-15-2015 Follow Up Appt 6 months Katie banuelos PA-C Work Phone: Start: 09-15-2015 End: 09-16-2015 Program eval implantable in persn dual ld pacer Delgado Lala MD Start: 09-15-2015 End: 09-15-2015 DECKER OPERATOR Katie Nuno PA-C Work Phone: Start: 09-15-2015 End: 09-15-2015 Follow Up Appt 6 months Katie banuelos PA-C Work Phone: Start: 09-15-2015 End: 09-16-2015 Pm device progr eval, dual Delgado Lala MD Start: 08-08-2015 End: 08-08-2015 *Hepatic Function Panel Dontae Molina Start: 08-08-2015 End: 08-08-2015 Lipid 1996 panel - Serum or Plasma Delgado Lala MD Start: 08-08-2015 End: 08-08-2015 *Hepatic Function Panel Dontae Molina Start: 08-08-2015 End: 08-08-2015 Lipid panel [AGGREGATE] Dontae Molina Start: 06-24-2015 End: 09-06-2015 Follow Up Appt 3 months Dontae Molina Start: 06-24-2015 End: 09-06-2015 Pacer Clinic Delgado Lala MD Start: 06-24-2015 End: 06-27-2015 Program eval implantable in persn dual ld pacer Delgado Lala MD Start: 06-24-2015 End: 09-06-2015 Follow Up Appt 3 months Dontae Molina Start: 06-24-2015 End: 09-06-2015 Pacer Clinic Delgado Lala MD Start: 06-24-2015 End: 06-27-2015 Pm device progr eval, dual Delgado Lala MD Start: 03-17-2015 End: 03-17-2015 Dietary management education, guidance, and counseling Kandis Dodd RN Start: 03-17-2015 End: 03-18-2015 Documentation of current medications Delgado Lala MD Start: 03-17-2015 End: 09-06-2015 Follow Up Appt 6 months Dontae Molina Start: 03-17-2015 End: 03-17-2015 MMDontae Lala MD Start: 03-17-2015 End: 09-06-2015 Pacer Clinic Delgado Lala MD Start: 03-17-2015 End: 03-18-2015 Program eval implantable in persn dual ld pacer Delgado Lala MD Start: 03-17-2015 End: 03-18-2015 Documentation of current medications Delgado Lala MD Start: 03-17-2015 End: 09-06-2015 Follow Up Appt 6 months Dontae Molina Start: 03-17-2015 End: 03-17-2015 MMDontae Lala MD Start: 03-17-2015 End: 09-06-2015 Pacer Clinic Delgado Lala MD Start: 03-17-2015 End: 03-18-2015 Pm device progr eval, dual Delgado Lala MD Start: 02-10-2015 End: 02-10-2015 *Hepatic Function Panel Katie banuelos PA-C Work Phone: Start: 02-10-2015 End: 02-10-2015 Lipid 1996 panel - Serum or Plasma Katie Nuno PA-C Work Phone: Start: 02-10-2015 End: 02-10-2015 *Hepatic Function Panel Katie banuelos PA-C Work Phone: Start: 02-10-2015 End: 02-10-2015 Lipid panel [AGGREGATE] Katie banuelos PA-C Work Phone: Start: 11-22-2014 End: 03-17-2015 Follow Up Appt 3 months Katie banuelos PA-C Work Phone: Start: 11-22-2014 End: 03-17-2015 Pacer Clinic Katie Nuno PA-C Work Phone: Start: 11-22-2014 End: 11-22-2014 Program eval implantable in persn dual ld pacer Katie Nuno PA-C Work Phone: Start: 11-22-2014 End: 03-17-2015 Follow Up Appt 3 months Katie banuelos PA-C Work Phone: Start: 11-22-2014 End: 03-17-2015 Pacer Clinic Katie Nuno PA-C Work Phone: Start: 11-22-2014 End: 11-22-2014 Pm device progr eval, dual Katie Mejía PA-C Work Phone: Start: 08-23-2014 End: 03-17-2015 DECKER OPERATOR Katie Nuno PA-C Work Phone: Start: 08-23-2014 End: 03-17-2015 Follow Up Appt 3 months Katie banuelos PA-C Work Phone: Start: 08-23-2014 End: 08-23-2014 Follow Up Appt 6 months Katie banuelos PA-C Work Phone: Start: 08-23-2014 End: 08-23-2014 Program eval implantable in persn dual ld pacer Katie Nuno PA-C Work Phone: Start: 08-23-2014 End: 03-17-2015 DECKER OPERATOR Katie Nuno PA-C Work Phone: Start: 08-23-2014 End: 03-17-2015 Follow Up Appt 3 months Katie banuelos PA-C Work Phone: Start: 08-23-2014 End: 08-23-2014 Follow Up Appt 6 months Katie banuelos PA-C Work Phone: Start: 08-23-2014 End: 08-23-2014 Pm device progr eval, dual Katie Mejía PA-C Work Phone: Start: 02-19-2014 End: 02-19-2014 Follow Up Appt 6 months Dontae Molina Start: 02-19-2014 End: 02-19-2014 AIDAN Lala MD Start: 02-19-2014 End: 02-19-2014 Pacer Clinic Delgado Lala MD Start: 02-19-2014 End: 02-19-2014 Program eval implantable in persn dual ld pacer Delgado Lala MD Start: 02-19-2014 End: 02-19-2014 Follow Up Appt 6 months Dontae Molina Start: 02-19-2014 End: 02-19-2014 AIDAN Lala MD Start: 02-19-2014 End: 02-19-2014 Pacer Clinic Delgado Lala MD Start: 02-19-2014 End: 02-19-2014 Pm device progr eval, dual Delgado Lala MD Start: 01-11-2014 End: 08-23-2014 *Hepatic Function Panel Katie banuelos PA-C Work Phone: Start: 01-11-2014 End: 08-23-2014 Lipid 1996 panel - Serum or Plasma Katie Nuno PA-C Work Phone: Start: 01-11-2014 End: 08-23-2014 *Hepatic Function Panel Katie Dontae Zak banuelos PA-C Work Phone: Start: 01-11-2014 End: 08-23-2014 Lipid panel [AGGREGATE] Katie banuelos PA-C Work Phone: Start: 11-24-2013 End: 01-11-2014 *Hepatic Function Panel Katie Diggs Zak banuelos PA-C Work Phone: Start: 11-24-2013 End: 01-11-2014 Lipid 1996 panel - Serum or Plasma Katie Nuno PA-C Work Phone: Start: 11-24-2013 End: 01-11-2014 *Hepatic Function Panel Katie banuelos PA-C Work Phone: Start: 11-24-2013 End: 01-11-2014 Lipid panel [AGGREGATE] Katie banuelos PA-C Work Phone: Start: 08-31-2013 End: 08-31-2013 Program eval implantable in persn dual ld pacer Delgado Lala MD Start: 08-31-2013 End: 08-31-2013 Pm device progr eval, dual Delgado Lala MD Start: 05-28-2013 End: 06-09-2013 *Hepatic Function Panel Katie banuelos PA-C Work Phone: Start: 05-28-2013 End: 05-28-2013 DECKER OPERATOR Katie Nuno PA-C Work Phone: Start: 05-28-2013 End: 05-28-2013 Follow Up Appt 3 months Dontae Molina Start: 05-28-2013 End: 05-28-2013 Follow Up Appt 6 months Katie banuelos PA-C Work Phone: Start: 05-28-2013 End: 06-09-2013 Lipid 1996 panel - Serum or Plasma Katie Nuno PA-C Work Phone: Start: 05-28-2013 End: 05-28-2013 Pacer Clinic Delgado Lala MD Start: 05-28-2013 End: 05-28-2013 Program eval implantable in persn dual ld pacer Delgado Lala MD Start: 05-28-2013 End: 06-09-2013 *Hepatic Function Panel Katie banuelos PA-C Work Phone: Start: 05-28-2013 End: 05-28-2013 DECKER OPERATOR Katie Nuno PA-C Work Phone: Start: 05-28-2013 End: 05-28-2013 Follow Up Appt 3 months Dontae Molina Start: 05-28-2013 End: 05-28-2013 Follow Up Appt 6 months Katie banuelos PA-C Work Phone: Start: 05-28-2013 End: 06-09-2013 Lipid panel [AGGREGATE] Katie banuelos PA-C Work Phone: Start: 05-28-2013 End: 05-28-2013 Pacer Clinic Delgado Lala MD Start: 05-28-2013 End: 05-28-2013 Pm device progr eval, dual Delgado Lala MD Start: 02-06-2013 End: 05-20-2013 Follow Up Appt 3 months Dontae Molina Start: 02-06-2013 End: 02-06-2013 Nurse, Teaching, Wound Check (no charge) Delgado Lala MD Start: 02-06-2013 End: 05-20-2013 Pacer Clinic Delgado Lala MD Start: 02-06-2013 End: 05-20-2013 Follow Up Appt 3 months Dontae Molina Start: 02-06-2013 End: 02-06-2013 Nurse, Teaching, Wound Check (no charge) Delgado Lala MD Start: 02-06-2013 End: 05-20-2013 Pacer Clinic Delgado Lala MD Start: 01-21-2013 End: 02-06-2013 *BMP Delgado Lala MD Start: 01-21-2013 End: 02-06-2013 *UA - Urinalysis w/o Micro Delgado Lala MD Start: 01-21-2013 End: 02-06-2013 CBC W Auto Differential panel - Blood Delgado Lala MD Start: 01-21-2013 End: 02-06-2013 Chest x-ray Delgado Lala MD Start: 01-21-2013 End: 02-06-2013 Ecg routine ecg w/least 12 lds w/i&r Delgado Lala MD Start: 01-21-2013 End: 02-06-2013 Follow Up Appt 3 months Dontae Molina Start: 01-21-2013 End: 01-21-2013 Follow Up Appt 4 months Dontae Molina Start: 01-21-2013 End: 02-06-2013 INR in Platelet poor plasma by Coagulation assay Delgado Lala MD Start: 01-21-2013 End: 01-21-2013 MMM Delgado Lala MD Start: 01-21-2013 End: 02-06-2013 Pacemaker Generator Change Delgado Lala MD Start: 01-21-2013 End: 02-06-2013 Pacer Clinic Delgado Lala MD Start: 01-21-2013 End: 01-21-2013 Program eval implantable in persn dual ld pacer Delgado Lala MD Start: 01-21-2013 End: 02-06-2013 *BMP Delgado Lala MD Start: 01-21-2013 End: 02-06-2013 *UA - Urinalysis w/o Micro Delgado Lala MD Start: 01-21-2013 End: 02-06-2013 CBC W Auto Differential panel - Blood Delgado Lala MD Start: 01-21-2013 End: 02-06-2013 Chest x-ray Delgado Lala MD Start: 01-21-2013 End: 02-06-2013 Coagulation factor induced.INR assay in platelet poor plasma Delgado Lala MD Start: 01-21-2013 End: 02-06-2013 Electrocardiogram, complete Delgado Alex i, MD Start: 01-21-2013 End: 02-06-2013 Follow Up Appt 3 months Dontae Molina Start: 01-21-2013 End: 01-21-2013 Follow Up Appt 4 months Dontae Molina Start: 01-21-2013 End: 01-21-2013 MMM Delgado Lala MD Start: 01-21-2013 End: 02-06-2013 Pacemaker Generator Change Delgado Lala MD Start: 01-21-2013 End: 02-06-2013 Pacer Clinic Delgado Lala MD Start: 01-21-2013 End: 01-21-2013 Pm device progr eval, dual Delgado Lala MD Start: 12-12-2012 End: 02-06-2013 Follow Up Appt 1 month Delgado Lala MD Start: 12-12-2012 End: 02-06-2013 Pacer Clinic Delgado Lala MD Start: 12-12-2012 End: 12-12-2012 Program eval implantable in persn dual ld pacer Delgado Lala MD Start: 12-12-2012 End: 02-06-2013 Follow Up Appt 1 month Delgado Lala MD Start: 12-12-2012 End: 02-06-2013 Pacer Clinic Delgado Lala MD Start: 12-12-2012 End: 12-12-2012 Pm device progr eval, dual Delgado Lala MD Start: 11-24-2012 End: 02-06-2013 *Hepatic Function Panel Dontae Molina Start: 11-24-2012 End: 02-06-2013 Lipid 1996 panel - Serum or Plasma Delgado Lala MD Start: 11-24-2012 End: 02-06-2013 *Hepatic Function Panel Dontae Molina Start: 11-24-2012 End: 02-06-2013 Lipid panel [AGGREGATE] Dontae Molina Start: 07-04-2012 End: 07-04-2012 Follow Up Appt 6 months Dontae Molina Start: 07-04-2012 End: 07-04-2012 Follow Up Appt 6 months Dontae Molina Start: 05-01-2012 End: 06-24-2012 *Hepatic Function Panel Dontae Molina Start: 05-01-2012 End: 06-24-2012 Lipid 1996 panel - Serum or Plasma Delgado Lala MD Start: 05-01-2012 End: 06-24-2012 *Hepatic Function Panel Dontae Molina Start: 05-01-2012 End: 06-24-2012 Lipid panel [AGGREGATE] Dontae Molina Start: 11-06-2011 End: 11-06-2011 eRx Transmitted during this visit (Medicare only) Delgado Lala MD Start: 11-06-2011 End: 11-06-2011 Follow Up Appt 6 months Dontae Molina Start: 11-06-2011 End: 11-06-2011 eRx Transmitted during this visit (Medicare only) Delgado Lala MD Start: 11-06-2011 End: 11-06-2011 Follow Up Appt 6 months Dontae Molina Coronary artery bypa ss graft Ruthy Green PT Work Phone: Hernia repair Ruthy Addison d PT Work Phone: Insertion of pacemak er pulse generator Ruthy Green PT Work Phone: Prosthetic arthropla sty of the hip Ruthymarcio Martinezsterud PT Work Phone: Total replacement of hip Danyelle senthil Black STAFF DEVELOPMENT COORDINATOR RN Work Phone: Plan of Treatment Date Care Activity Detail Author Start: 06-13-2031 Tetanus vaccination Tetanus: Every [address] [facility] Start: 10-03-2023 End: 10-03-2023 Patient encounter procedure 10/03/2023 10:40 AM EST Office Visit [facility] [address] [place] [address] Duncan Valdez MD [address] [place] [address] [facility] Start: 07-11-2023 End: 07-11-2023 Patient encounter procedure 07/11/2023 11:00 AM EST Office Visit [facility] [address] [place] [id number] Duncan Valdez MD [address] [place] [address] [facility] Start: 05-02-2023 End: 05-02-2023 Patient encounter procedure 05/02/2023 11:00 AM EDT Office Visit [facility] [address] [place] [id number] Duncan Valdez MD [address] [place] [address] [id number] [facility] Start: 04-26-2023 COVID-19 Vaccine ( season) COVID-19 Vaccine ( season) [facility] Start: 04-26-2023 Influenza vaccination [facility] Start: 03-01-2023 End: 03-01-2023 Patient encounter procedure 03/01/2023 10:00 AM EDT Office Visit [facility] [address] [place] [address] Duncan Valdez MD [address] [place] [address] [facility] Start: 02-28-2023 End: 02-28-2023 Patient encounter procedure 02/28/2023 10:20 AM EDT Office Visit [facility] [address] [place] [id number] Duncan Valdez MD [address] [place] [address] [facility] Start: 12-06-2022 End: 12-07-2023 6-minute walk test 6 minute walk PFT Routine Pulmonary fibrosis (HCC) Expected: 12/06/2022, Expires: 12/07/2023 [facility] Immunizations Immunization Date Immunization Notes Care Provider Fa cility 06-13-2021 tetanus toxoid, redu gretchen diphtheria toxoid, and acellular pertussis vaccine, adsorbed Mary Larkin MD Work Phone: [facility] Payers Date Payer Category Payer Unknown 2021 Unknown [id number] 2020 Medicare [employer] [facility] [employer] (PPO) [id number] 2020-Present [phone] [address] [place] [address] [id number] 2020 Private Health Insurance [id number] 2018 Private Health Insurance 1940 Unknown [id number] 2.16.840.1.798862.3.579.2.7 17 1938 Unknown [id number] 2.16.840.1.186688.3.579.2.1 1938 Unknown [id number] 2.16.840.1.452728.3.579.2.1 1938 Unknown [id number] 2.16.840.1.994113.3.579.2.1 1938 Unknown [id number] 2.16.840.1.601757.3.579.2.1 1938 Unknown [id number] 2.16.840.1.731220.3.579.2.1 1938 Unknown [id number] 2.16.840.1.370930.3.579.2.1 9 1938 Unknown [id number] 2.16.840.1.341262.3.579.2.1 1938 Unknown [id number] 2.16.840.1.504964.3.579.2.1 1938 Unknown [id number] 2.16.840.1.374771.3.579.2.1 9 1938 Unknown [id number] 2.16.840.1.247315.3.579.2.9 03 1938 Unknown [id number] 2.16.840.1.711117.3.579.2.9 03 1938 Unknown [id number] 2.16.840.1.682036.3.579.2.9 03 1938 Unknown [id number] 2.16.840.1.568519.3.579.2.9 03 1938 Unknown [id number] 2.16.840.1.322080.3.579.2.9 00 1938 Unknown [id number] 2.16.840.1.937818.3.579.2.9 03 1938 Unknown [id number] 2.16.840.1.527688.3.579.2.9 03 1938 Unknown [id number] 2.16.840.1.716328.3.579.2.9 03 1938 Unknown [id number] 2.16.840.1.776083.3.579.2.9 03 1938 Unknown [id number] 2.16.840.1.144178.3.579.2.9 03 1938 Unknown [id number] 2.16.840.1.588376.3.579.2.9 03 1938 Unknown [id number] 2.16.840.1.616842.3.579.2.9 03 1938 Unknown [id number] 2.16.840.1.894512.3.579.2.9 03 1938 Unknown [id number] 2.16.840.1.340782.3.579.2.9 02 1938 Unknown [id number] 2.16.840.1.205892.3.579.2.9 02 Social History Date Type Detail Facility Start: 07-11-2022 End: 08-24-2023 Former smoker Former smoker [facility] Work Phone: Start: 07-10-2022 Tobacco smoking status NHIS Never smoked tobacco [facility] Start: 07-10-2022 End: 01-30-2023 Tobacco use and exposure Smokeless tobacco non-user [facility] Start: 07-10-2022 End: 08-24-2023 Alcohol intake Ex-drinker (finding) [facility] Start: 1940 Sex Assigned At Not on file [facility] Start: 06-30-2022 End: 01-10-2023 Exposure to SARS-CoV-2 (event) Not sure [facility] Start: 07-11-2022 End: 08-24-[address] [facility] Start: 01-30-2023 Tobacco smoking status NHIS Ex-smoker [facility] End: 08-26-1979 History of tobacco use Current smoker [facility] End: 08-26-1979 History of tobacco use Cigarette Smoker [facility] Start: 01-30-[address] [facility] Start: 08-24-2023 Gender identity Identifies as male gender (finding) [facility] Start: 08-24-2023 Sexual orientation Heterosexual (finding) [facility] Clinical Notes 09-26-2021 to 07-26-2023 Duncan Valdez MD - 07/26/2023 11:00 AM ESTTelephone Encounter - Bharti Centeno LPN - 06/25/2023 2:37 PM EDTTelephone Encounter - Bharti Centeno LPN - 06/25/2023 2:37 PM EDT Note Date & Type Note Facility 07-26-2023 History of Present illness Narrative PULMONOLOGY PROGRESS 07/26/2023 Patient: Reddy Andrews Date of : 1940 Site: [facility] Provider: Duncan Valdez MD ASSESSMENT/PLAN: Reddy Andrews 83 y.o. male with history of pulmonary fibrosis, HTN, HLD, A-fib, CAD who presents for follow up of testing and results. Pulmonary fibrosis - last chest CT from January 2023 reviewed and compared to the [facility]. There is peripheral fibsosis and evidence of bronchiectasis with the possibility of mild honey combing in the bases. Appears to have mildly progressed from 2021. Repeat complete PFTs, 6 min walk and chest CT for January 2023 completed. PFTs show moderate restriction. There is no response to bronchodilators. There is no evidence of air trapping. Diffusing capacity is reduced. Flow volume loop is consistent with restrictive lung disease. 6 minute walk testing reviewed and While exercising on room air patient desaturated to < 87%, patient required 4L of supplemental oxygen to regain a saturation > 87% with continued ambulation. Patient did not require oxygen at rest to maintain a saturation > 87%. Pirfenidone dosing increased at this visit. Remains on trelegy and low dose steroids (increased dose to 10 at this visit). Also prescribed Dunebs and [facility]. Did discuss that his worsening sx with associated increasing O2 requirement and his CT and PFT findings are concerning for progressive fibrosis and I am worried about his prognosis. Discussed the option of a hospice referral at any time. I do not recommend further PFT or CT testing as it will not exchange clerk and patient has significant sx and morbidity specifically associated with the PFTs. Chronic hypoxemic respiratory failure - desaturation to 86% noted on 6 minute walk test [facility] - Patient on 4-6L supplemental O2.. Goal sat - 88 - 92%. High risk for development of Group 2/3 pHTN - consider TTE A-fib and underlying CAD - on AC, has underlying pacer RTC 3 months Assessment & plan notes cannot be loaded without a specified hospital service. SUBJECTIVE: History Since Last Visit: Continues to have progressive dyspnea on exertion and significant hypoxia with exertion despite supplemental O2. He recovers with rest and with his oxygen supplementation. No fevers or chills. Has a chronic cough which is non-productive. No chest pain. Interpretation of Testing: I personally reviewed the no new testing and agree with the interpretation(s). Review of Systems: Constitutional:No fever, no weight loss Eyes:No diplopia CV:No chest pain. No ankle swelling :No dysuria MuscSkel:No arthralgias Endo:No polyuria All other systems reviewed and negative other than HPI Past Medical History: Diagnosis Date Atrial fibrillation (HCC) Coronary artery disease Hyperlipidemia Hypertension IPF (idiopathic pulmonary fibrosis) ([facility]) Current Outpatient Medications: apixaban (ELIQUIS) 5 mg Tab, Take by mouth ., Disp: , Rfl: aspirin 81 MG EC tablet, Take 1 (one) tablet (81 mg total) by mouth daily ., Disp: , Rfl: atorvastatin (LIPITOR) 80 MG tablet, Take 1 (one) tablet (80 mg total) by mouth daily ., Disp: , Rfl: yaiixkqnrs-rdkipfwy-gfufwyalcl (Breztri Aerosphere) 160-9-4.8 mcg/actuation HFAA, Inhale 2 (two) puffs daily ., Disp: 10.7 g, Rfl: 11 calcium carbonate-vitamin D3 600 mg-20 mcg (800 unit) Tab, 1 each ., Disp: , Rfl: whawudaopqg-kvlmxggor-ytvxxrys (Trelegy Ellipta) 200-62.5-25 mcg DsDv, Inhale 1 (one) Inhalation. daily ., Disp: 60 each, Rfl: 6 ipratropium-albuteroL (DUO-NEB) 0.5-2.5 mg/3 ml nebulizer, Take 3 mL by nebulization every 6 (six) hours as needed for wheezing ., Disp: 270 mL, Rfl: 11 meclizine (ANTIVERT) 12.5 mg tablet, Take 1 (one) tablet (12.5 mg total) by mouth 3 (three) times a day as needed for nausea ., Disp: , Rfl: omega-3 fatty acids/fish oil (fish oil-omega-3 fatty acids) 300-1,000 mg capsule, Take 2,017 Unspecified by mouth ., Disp: , Rfl: pantoprazole (PROTONIX) 40 MG tablet, Take 1 (one) tablet (40 mg total) by mouth daily ., Disp: , Rfl: pirfenidone 267 mg Tab, Take 1 (one) tablet (267 mg total) by mouth daily ., Disp: 90 tablet, Rfl: 3 predniSONE (DELTASONE) 5 MG tablet, Take 1 (one) tablet (5 mg total) by mouth daily ., Disp: 30 tablet, Rfl: 11 ramipriL (ALTACE) 5 MG capsule, Take 1 (one) capsule (5 mg total) by mouth daily ., Disp: , Rfl: OBJECTIVE: Physical Examination: Blood pressure 130/63, pulse 61, temperature 98.7 F (37.1 C), temperature source Temporal, height 5' 7 , weight 86.4 kg (190 lb 8 oz), SpO2 95 %. Vital Signs Reviewed. Gen: In no apparent distress, chronically ill appearing on 4L O2 HEENT: Head: Normocephalic, no lesions, without obvious abnormality. Neck: nontender, full range of motion, no mass, no focal lymphadenopathy Cardio: regular rate and rhythm Resp: distant breath sounds bilaterally, no wheezes or crackles, coarse crackles throughout Abd: soft, nontender MSK: Moves all four extremities spontaneously. Neuro: Grossly normal without focal findings Skin: no rashes, no jaundice Laboratory and Additional Data Reviewed: Reviewed 07/26/23 8:02 AM: Laboratory, Microbiology, Radiology, Cardiology, and Medications documented in this encounter [facility] 06-25-2023 Telephone encounter Note Pt's spouse Yamilex stops in to the office for a refill on pt's Pirfenidone 267 mg cap and this is to go to the [facility]. Mary this is a pt of . Do you mind approving the refill that I pended? Thanks! [facility] 06-25-2023 Miscellaneous Notes Pt's spouse Yamilex stops in to the office for a refill on pt's Pirfenidone 267 mg cap and this is to go to the [facility]. Mary this is a pt of Dr.Courtney's. Do you mind approving the refill that I pended? Thanks! documented in this encounter [facility] 05-02-2023 History of Present illness Narrative PULMONOLOGY PROGRESS 05/02/2023 Patient: Reddy Andrews Date of : 1940 Site: [facility] Provider: Duncan Valdez MD ASSESSMENT/PLAN: Reddy Andrews 82 y.o. male with history of pulmonary fibrosis, HTN, HLD, A-fib, CAD who presents for follow up of testing and results. Pulmonary fibrosis - last chest CT from January 2023 reviewed and compared to the images from disc sent over from the [facility] with [facility] CT from January 2022. There is peripheral fibsosis and evidence of bronchiectasis with the possibility of mild honey combing in the bases. Appears to have mildly progressed from 2021. Repeat complete PFTs, 6 min walk and chest CT for January 2023 completed. PFTs show moderate restriction. There is no response to bronchodilators. There is no evidence of air trapping. Diffusing capacity is reduced. Flow volume loop is consistent with restrictive lung disease. 6 minute walk testing reviewed and While exercising on room air patient desaturated to < 87%, patient required 4L of supplemental oxygen to regain a saturation > 87% with continued ambulation. Patient did not require oxygen at rest to maintain a saturation > 87%. Patient does report progressive worsening sx so discussed if there is progression or more than a 10% change in the PFTs that we would consider starting anti-fibrotics - he is very hesitant to do this because of concern for side effects but agreed to trial the low dose - [facility] - if he liza well will increase dose at next visit. Prescribed Breztri as well as daily low dose prednisone and he does feel he has noted some improvement in the chronic cough but is requesting to switch back to Trelegy - prescribed and sent to [facility]. Also prescribed Dunebs and a nebulizer machine [facility]. Did discuss that his worsening sx with associated increasing O2 requirement and his CT and PFT findings are concerning for progressive fibrosis and I am worried about his prognosis. Discussed the option of a hospice referral at any time. Chronic hypoxemic respiratory failure - desaturation to 86% noted on 6 minute walk test [facility] - Patient on 4-6L supplemental O2.. Goal sat - 88 - 92%. High risk for development of Group 2/3 pHTN - consider TTE A-fib and underlying CAD - on AC, has underlying pacer RTC 8 weeks Assessment & plan notes cannot be loaded without a specified hospital service. SUBJECTIVE: History Since Last Visit: Continues to have progressive dyspnea with minimal exertion. Is using 4-7L of supplemental O2. Is waiting on a sc[facility] to help with mobility. He asked appropriate questions abut hospice, but is not sure he is ready for that yet. Has twin grandbabies set to be born today or tomorrow. Feels the breztri isn't as helpful as the trelegy and wants to go back to that even though it's not covered by the [facility]. Gave 2 samples in office today as well as sending the prescription. Also reports that the medications don't feel they get deep enough into his lungs and is interested in trying the nebulizer. Interpretation of Testing: I personally reviewed the Chest X-ray and agree with the interpretation(s). Review of Systems: Constitutional:No fever, no weight loss Eyes:No diplopia CV:No chest pain. No ankle swelling :No dysuria Integumentary:No skin rash Additional system(s) no night sweats All other systems reviewed and negative other than HPI Past Medical History: Diagnosis Date Atrial fibrillation (HCC) Coronary artery disease Hyperlipidemia Hypertension IPF (idiopathic pulmonary fibrosis) ([facility]) Current Outpatient Medications: apixaban (ELIQUIS) 5 mg Tab, Take by mouth ., Disp: , Rfl: aspirin 81 MG EC tablet, Take 1 (one) tablet (81 mg total) by mouth daily ., Disp: , Rfl: atorvastatin (LIPITOR) 80 MG tablet, Take 1 (one) tablet (80 mg total) by mouth daily ., Disp: , Rfl: lbeylkfvwv-fzquacnh-cbljvecscf (Breztri Aerosphere) 160-9-4.8 mcg/actuation HFAA, Inhale 2 (two) puffs daily ., Disp: 10.7 g, Rfl: 11 calcium carbonate-vitamin D3 600 mg-20 mcg (800 unit) Tab, 1 each ., Disp: , Rfl: meclizine (ANTIVERT) 12.5 mg tablet, Take 1 (one) tablet (12.5 mg total) by mouth 3 (three) times a day as needed for nausea ., Disp: , Rfl: omega-3 fatty acids/fish oil (fish oil-omega-3 fatty acids) 300-1,000 mg capsule, Take 2,017 Unspecified by mouth ., Disp: , Rfl: pantoprazole (PROTONIX) 40 MG tablet, Take 1 (one) tablet (40 mg total) by mouth daily ., Disp: , Rfl: pirfenidone 267 mg cap, Take 1 (one) capsule (267 mg total) by mouth daily ., Disp: 30 capsule, Rfl: 1 predniSONE (DELTASONE) 5 MG tablet, Take 1 (one) tablet (5 mg total) by mouth daily ., Disp: 30 tablet, Rfl: 11 ramipriL (ALTACE) 5 MG capsule, Take 1 (one) capsule (5 mg total) by mouth daily ., Disp: , Rfl: OBJECTIVE: Physical Examination: Blood pressure 135/73, pulse 60, temperature 98 F (36.7 C), temperature source Temporal, height 5' 7 , weight 85.8 kg (189 lb 3.2 oz), SpO2 94 %. Vital Signs Reviewed. Gen: chronically ill appearing on 5L supplemental O2 HEENT: Head: Normocephalic, no lesions, without obvious abnormality. Neck: nontender Cardio: regular rate and rhythm Resp: no tachypnea or accessory muscle use, coarse crackles throughout Abd: soft, nontender MSK: Moves all four extremities spontaneously. Neuro: Grossly normal without focal findings Skin: no rashes, no jaundice Laboratory and Additional Data Reviewed: Reviewed 05/02/23 7:53 AM: Laboratory, Microbiology, Cardiology, and Medications documented in this encounter [facility] 02-28-2023 History of Present illness Narrative PULMONOLOGY PROGRESS 02/28/2023 Patient: Reddy Andrews Date of : 1940 Site: [facility] Provider: Duncan Valdez MD ASSESSMENT/PLAN: Reddy Andrews 82 y.o. male with history of pulmonary fibrosis, HTN, HLD, A-fib, CAD who presents for follow up of testing and results. Pulmonary fibrosis - last chest CT from January 2023 reviewed and compared to the images [facility]. There is peripheral fibsosis and evidence of bronchiectasis with the possibility of mild honey combing in the bases. Appears to have mildly progressed from 2021. Repeat complete PFTs, 6 min walk and chest CT for January 2023 completed. PFTs show moderate restriction. There is no response to bronchodilators. There is no evidence of air trapping. Diffusing capacity is reduced. Flow volume loop is consistent with restrictive lung disease. 6 minute walk testing reviewed and While exercising on room air patient desaturated to < 87%, patient required 4L of supplemental oxygen to regain a saturation > 87% with continued ambulation. Patient did not require oxygen at rest to maintain a saturation > 87%. Patient does report progressive worsening sx so discussed if there is progression or more than a 10% change in the PFTs that we would consider starting anti-fibrotics - he is very hesitant to do this because of concern for side effects but agreed to trial the low dose - prescribed through the [facility] today - if he liza well will increase dose at next visit. Prescribed Breztri as well as daily low dose prednisone and he does feel he has noted some improvement in the chronic cough. Did discuss that his worsening sx with associated increasing O2 requirement and his CT and PFT findings are concerning for progressive fibrosis and I am worried about his prognosis. Chronic hypoxemic respiratory failure - desaturation to 86% noted on 6 minute walk test from [facility] - Patient on 4-6L supplemental O2.. Goal sat - 88 - 92%. Is upset that he now has to use the large rolling oxygen as opposed to the smaller portable model given his increased O2 needs. High risk for development of Group 2/3 pHTN - consider TTE A-fib and underlying CAD - on AC, has underlying pacer RTC 8 weeks to follow up pirfenidone initiation. Assessment & plan notes cannot be loaded without a specified hospital service. SUBJECTIVE: History Since Last Visit: Is on increased supplemental O2. Feels the inhaler and prednisone combo has helped somewhat but still has notable dyspnea on exertion. No fevers or chills. No weight loss or hemoptysis. Met with Fredo Paniagua at the [facility] and was very impressed with his kindness and knowledge. Interpretation of Testing: I personally reviewed the chest CT and agree with the interpretation(s). Review of Systems: Constitutional:No fever, no weight loss Eyes:No diplopia ENT:No sinus drainage GI:No abdominal pain.No abdominal distention :No dysuria Neuro:No headache All other systems reviewed and negative other than HPI Past Medical History: Diagnosis Date Atrial fibrillation (HCC) Coronary artery disease Hyperlipidemia Hypertension IPF (idiopathic pulmonary fibrosis) ([facility]CC) Current Outpatient Medications: apixaban (ELIQUIS) 5 mg Tab, Take by mouth ., Disp: , Rfl: aspirin 81 MG EC tablet, Take 1 (one) tablet (81 mg total) by mouth daily ., Disp: , Rfl: atorvastatin (LIPITOR) 80 MG tablet, Take 1 (one) tablet (80 mg total) by mouth daily ., Disp: , Rfl: hstykviwdf-csjfxgua-zcbbqumdqp (Breztri Aerosphere) 160-9-4.8 mcg/actuation HFAA, Inhale 2 (two) puffs daily ., Disp: 10.7 g, Rfl: 11 calcium carbonate-vitamin D3 600 mg-20 mcg (800 unit) Tab, 1 each ., Disp: , Rfl: meclizine (ANTIVERT) 12.5 mg tablet, Take 1 (one) tablet (12.5 mg total) by mouth 3 (three) times a day as needed for nausea ., Disp: , Rfl: omega-3 fatty acids/fish oil (fish oil-omega-3 fatty acids) 300-1,000 mg capsule, Take 2,017 Unspecified by mouth ., Disp: , Rfl: pantoprazole (PROTONIX) 40 MG tablet, Take 1 (one) tablet (40 mg total) by mouth daily ., Disp: , Rfl: predniSONE (DELTASONE) 5 MG tablet, Take 1 (one) tablet (5 mg total) by mouth daily ., Disp: 30 tablet, Rfl: 11 ramipriL (ALTACE) 5 MG capsule, Take 1 (one) capsule (5 mg total) by mouth daily ., Disp: , Rfl: OBJECTIVE: Physical Examination: Blood pressure 129/61, pulse 60, temperature 98.7 F (37.1 C), resp. rate 16, height 5' 7 , weight 85.8 kg (189 lb 1.6 oz), SpO2 90 %. Vital Signs Reviewed. Gen: Alert and oriented x 3, In no apparent distress, on 6L supplemental O2 HEENT: Head: Normocephalic, no lesions, without obvious abnormality. Neck: nontender, full range of motion, no mass, no focal lymphadenopathy Cardio: regular rate and rhythm, no murmur, brisk capillary refill Resp: distant breath sounds bilaterally, no wheezes or crackles, no tachypnea or accessory muscle use, coarse basilar crackles Abd: soft, nontender MSK: Moves all four extremities spontaneously. Neuro: Grossly normal without focal findings Skin: no rashes, no jaundice Laboratory and Additional Data Reviewed: Reviewed 02/28/23 8:10 AM: Laboratory, Microbiology, Radiology, Cardiology, and Medications documented in this encounter [facility] 01-30-2023 History of Present illness Narrative PULMONOLOGY PROGRESS 01/30/2023 Patient: Reddy Andrews Date of : 1940 Site: [facility] Provider: Duncan Valdez MD ASSESSMENT/PLAN: Reddy Andrews 82 y.o. male with history of with hx of pulmonary fibrosis , HTN, HLD, A-fib, CAD who presents for follow up of testing and results. Pulmonary fibrosis - last chest CT from January 2023 reviewed and compared to the images [facility]. There is peripheral fibsosis and evidence of bronchiectasis with the possibility of mild honey combing in the bases. Appears to have mildly progressed from 2021. Repeat complete PFTs, 6 min walk and chest CT for January 2023 completed. PFTs show moderate restriction. There is no response to bronchodilators. There is no evidence of air trapping. Diffusing capacity is reduced. Flow volume loop is consistent with restrictive lung disease. 6 minute walk testing reviewed and While exercising on room air patient desaturated to < 87%, patient required 4L of supplemental oxygen to regain a saturation > 87% with continued ambulation. Patient did not require oxygen at rest to maintain a saturation > 87%. Patient does report progressive worsening sx so discussed if there is progression or more than a 10% change in the PFTs that we would consider starting anti-fibrotics - he is very hesitant to do this because of concern for side effects. Gave a trial of daily Trelegy 100 at last visit to see if his sx improved and he did note improvement - but [facility] so will prescribe Breztri as well as daily low dose prednisone. Did discuss that his worsening sx with associated increasing O2 requirement and his CT and PFT findings are concerning for progressive fibrosis and I am worried about his prognosis. Chronic hypoxemic respiratory failure - desaturation to 86% noted [facility] - Patient on 2L supplemental O2.. Goal sat - 88 - 92%. May need escalation of supplemental O2 support given findings of 6 min walk test. High risk for development of Group 2/3 pHTN - consider TTE A-fib and underlying CAD - on AC, has underlying pacer RTC 4 weeks to follow up breztri and prednisone initiation Assessment & plan notes cannot be loaded without a specified hospital service. SUBJECTIVE: History Since Last Visit: Continues to feel his breathing is getting worse. Decreased exercise tolerance, increased O2 needs. No fevers or chills.Feels air gets stuck and he also feels he cannot take a deep breath. No hemoptysis. No unintentional weight loss. Interpretation of Testing: I personally reviewed the Chest X-ray and agree with the interpretation(s) with the following comments. CT images personally reviewed as above Review of Systems: Constitutional:No fever, no weight loss Eyes:No diplopia ENT:No sinus drainage Integumentary:No skin rash Endo:No polyuria All other systems reviewed and negative other than HPI Past Medical History: Diagnosis Date Atrial fibrillation (HCC) Coronary artery disease Hyperlipidemia Hypertension IPF (idiopathic pulmonary fibrosis) (HCC) Current Outpatient Medications: apixaban (ELIQUIS) 5 mg Tab, Take by mouth ., Disp: , Rfl: aspirin 81 MG EC tablet, Take 1 (one) tablet (81 mg total) by mouth daily ., Disp: , Rfl: atorvastatin (LIPITOR) 80 MG tablet, Take 1 (one) tablet (80 mg total) by mouth daily ., Disp: , Rfl: meclizine (ANTIVERT) 12.5 mg tablet, Take 1 (one) tablet (12.5 mg total) by mouth 3 (three) times a day as needed for nausea ., Disp: , Rfl: pantoprazole (PROTONIX) 40 MG tablet, Take 1 (one) tablet (40 mg total) by mouth daily ., Disp: , Rfl: ramipriL (ALTACE) 5 MG capsule, Take 1 (one) capsule (5 mg total) by mouth daily ., Disp: , Rfl: OBJECTIVE: Physical Examination: Blood pressure (!) 161/77, pulse 60, temperature 98.2 F (36.8 C), temperature source Temporal, height 5' 7 , weight 85 kg (187 lb 6.4 oz), SpO2 97 %. Vital Signs Reviewed. Gen: Alert and oriented x 3, In no apparent distress, on 2L supplemental O2 HEENT: Head: Normocephalic, no lesions, without obvious abnormality. Pharynx: Dental Hygiene adequate. Normal buccal mucosa. Normal pharynx. Neck: nontender Cardio: regular rate and rhythm Resp: distant breath sounds bilaterally, no wheezes or crackles, no tachypnea or accessory muscle use Abd: soft, nontender MSK: Moves all four extremities spontaneously. Neuro: Grossly normal without focal findings Skin: no rashes, no jaundice Laboratory and Additional Data Reviewed: Reviewed 01/30/23 7:59 AM: Laboratory, Microbiology, Cardiology, and Medications documented in this encounter [facility] 12-06-2022 History of Present illness Narrative PULMONOLOGY CONSULT 12/06/2022 Patient: Reddy Andrews Date of : 1940 Site: [facility] Referring Provider: Refer to consult order in electronic medical record Provider: Duncan Valdez MD ASSESSMENT/PLAN: Reddy Andrews 82 y.o. male with hx of pulmonary fibrosis , HTN, HLD, A-fib, CAD who presented as a new patient referral from the [facility] for continuity of pulmonary care. Pulmonary fibrosis - last chest CT from January 2022 reviewed from disc sent over from the [facility]. There is peripheral fibsosis and evidence of bronchiectasis with the possibility of mild honey combing in the bases. Per report this in unchanged from his previous Cts but I am unable to visualize comparison Cts only the reports. 6 minute walk testing reviewed, unfortunately PFTs were not sent. Will order repeat complete PFTs, 6 min walk and chest CT for January 2023 and plan to see after. Patient does report progressive worsening sx so discussed if there is progression or more than a 10% change in the PFTs that we would consider starting anti-fibrotics - he is very hesitant to do this because of concern for side effects. Gave a trial of daily Trelegy 100 to see if his sx improve - he is to call back in a month and if he notes an improvement will prescribe. Chronic hypoxemic respiratory failure - desaturation to 86% noted on 6 minute walk test from [facility] - Patient on 2L supplemental O2.. Goal sat - 88 - 92%. May need escalation of supplemental O2 given worsening sx with exertion and initial sat in clinic today in the 70s. Repeat 6-min walk testing ordered. High risk for development of Group 2/3 pHTN - consider TTE A-fib and underlying CAD - on AC, has underlying pacer RTC February to review PFTs and CT Assessment & plan notes cannot be loaded without a specified hospital service. SUBJECTIVE: Chief Complaint/Reason for Visit: Pulmonary fibrosis History of Present Illness: Reddy Andrews is a 82 y.o. male presenting from home with complaint of worsening shortness of breath and increased O2 needs in the setting of pulmonary fibrosis. Patient reports he had minimal sx prior to developing covid-19 in 2020. He was not hospitalized at the time but had progressive dyspnea so was sent for a CT where he was found to have fibrotic changes. He also had PFTs and 6-minute walk testing and was found to need supplemental O2. Since then he reports his [facility] front desk monitor says his testing has been stable but he notes increased dyspnea with minimal exertion, also notes that his oxygen levels dip into the 60s and 70s more easily despite his supplemental O2 and when this happens he has associated chest pain and unsteadiness on his feet. No cough or mucous production. Has never been on inhalers. Is very hesitant to consider anti-fibrotic therapy due to potential side effects. Did discuss concern for disease progression and ultimate life expectancy - patient understood. Interpretation of Testing: I personally reviewed the chest CT images personally reviewed as above and agree with the interpretation(s). Review of Systems: Constitutional:No fever, no weight loss Eyes:No diplopia ENT:No sinus drainage GI:No abdominal pain.No abdominal distention :No dysuria Neuro:No headache Integumentary:No skin rash All other systems reviewed and negative other than HPI Past Medical History: Diagnosis Date Atrial fibrillation (HCC) Coronary artery disease Hyperlipidemia Hypertension IPF (idiopathic pulmonary fibrosis) (HCC) Past Surgical History: Procedure Laterality Date CARDIAC SURGERY No family history on file. Social History Tobacco Use Smoking Status Never Smokeless Tobacco Never Vaping Use Vaping Status Not on file Allergies: Patient has no known allergies. Current Outpatient Medications Medication Sig Dispense Refill apixaban (ELIQUIS) 5 mg Tab Take by mouth . aspirin 81 MG EC tablet Take 81 mg by mouth daily . atorvastatin (LIPITOR) 80 MG tablet Take 80 mg by mouth daily . meclizine (ANTIVERT) 12.5 mg tablet Take 12.5 mg by mouth 3 (three) times a day as needed for nausea . pantoprazole (PROTONIX) 40 MG tablet Take 40 mg by mouth daily . ramipriL (ALTACE) 5 MG capsule Take 5 mg by mouth daily . No current facility-administered medications for this visit. OBJECTIVE: Physical Examination: Blood pressure 138/62, pulse 60, temperature 98.5 F (36.9 C), resp. rate 16, height 5' 7 , weight 85.3 kg (188 lb), SpO2 95 %. Vital Signs Reviewed. Gen: Alert and oriented x 3, chronically ill apearing on 2L nasal cannula HEENT: Head: Normocephalic, no lesions, without obvious abnormality. Neck: nontender Cardio: regular rate and rhythm Resp: inspiratory crackles bilaterally, good air movement, mild tachypnea Abd: soft, nontender MSK: Moves all four extremities spontaneously. Neuro: Grossly normal without focal findings Skin: no rashes, no jaundice Labs and Imaging: reviewed Laboratory and Additional Data Reviewed: Reviewed 12/06/22 8:05 AM: Laboratory, Microbiology, Radiology, Cardiology, and Medications documented in this encounter [facility] 07-10-2022 Instructions Mary Larkin MD - 07/10/2022 2:08 PM EST BENIGN PAROXYSMAL POSITIONAL VERTIGO (BPPV) You have been diagnosed with Benign Paroxysmal Positional Vertigo (BPPV.) BPPV is the most common cause of vertigo (sensation of motion.) It may occur in adults or children. Most people describe a profound spinning sensation with changes in position, such as rolling over in bed, or bending over to tie their shoes, which lasts a few seconds to minutes and then resolves until the next change in position. This may change in severity over time, and may not occur with all movements. Sometimes, people will describe a rocking sensation, like that of being on a boat, instead. Sufferers or people around them may also notice a jumping of the eyes during the symptom of vertigo. It is also very common to become nauseated during the vertigo, and for people to be reluctant to go out by themselves or to drive. This type of vertigo is generally not associated with lightheadedness or loss of consciousness. CAUSES: BPPV results from small calcium crystals (otoliths) breaking free from their normal location (where they occur naturally, allowing us to detect the effects of gravity) and entering one of the three canals of the balance organ (semicircular canals.) The presence of these particles in the semicircular canals acts to prolong stimulation of the balance organ with movements of the head, causing the brief, but sometimes profound, spinning or rocking sensation that you may experience after head movements or positional changes. The release of these particles has been associated with viral illnesses, head trauma, vascular accident (stroke), and migraine headaches, but most of the time a cause cannot be identified. Very rarely, BPPV can occur as a result of other diseases of the ear. Your doctor may recommend other tests to evaluate the ear and balance organ, especially if you do not respond normally to treatment or have additional or unusual symptoms. DIAGNOSIS: The diagnosis of BPPV is usually done by your doctor in the office. The most important part of making a diagnosis is your history and symptoms. By placing your head into several positions, your doctor can confirm the diagnosis by observation of characteristic movement of the eyes. These occur from the abnormal stimulation of the balance organ as the otoliths move about the semicircular canal causing your eyes to jump . The direction of these eye movements will tell your doctor which canal is affected and which treatments should be advised to resolve the symptom of vertigo. Your doctor may also recommend a hearing test or other tests of the balance organ. TREATMENT: The treatment of BPPV is removal of the particles from the semicircular canals. Because the particles are usually free floating, positioning the head in a way that allows the particle to exit the canals will often relieve the sensation of vertigo. This is done by performing the Eva maneuver, or by Semont exercises. Your doctor may ask you to see a physical therapist to perform and teach you about these. You may experience vertigo and nausea during this treatment, which is normal, and usually subsides quickly. Symptomatic improvement is usually achieved with as little as one or two treatment sessions, although some people may need several treatments for complete relief. Surgical treatment is rarely indicated, but is sometimes offered if symptoms fail the usual treatments, are severe, or recur with great frequency and the person desires surgical intervention. Fortunately, most cases of BPPV will resolve spontaneously, although this can sometimes take several weeks or months. The free particles tend to dissolve over time with relief of the vertigo symptoms. Staying active can help to stir up the particles and encourage them to dissolve, much in the same way stirring coffee or tea speeds sugar crystals to dissolve. MEDICATION: You may have been given medication by your primary care doctor or others to help relieve the symptom of vertigo. The most commonly prescribed medications include meclizine (Antivert , Bonine ,) diphenhydramine (Benadryl ,) and Dramamine . These medications are antihistamines (act against allergy symptoms) that also act to suppress nausea by their sedative effect on the central nervous system. Although helpful in this regard, they do not treat the underlying cause of vertigo, and in fact, may prolong the duration of this symptom. Your doctor may ask you to stop this medication or limit your use once a diagnosis of BPPV has been made. ONGOING CARE: After treatment, it is important to avoid allowing the particles to re-enter the semicircular canals. This is best achieved by avoiding certain head positions. In the first 48 hours after treatment, keep your head in an upright position. Avoid extending the neck backward or forward. Instead, try to keep your head in a forward looking direction. Avoid looking upward like you would to change a light bulb, or in gathering objects from a high shelf. Also, avoid looking downward as you would to tie your shoes or pick an object up off the floor. Instead, squat down while keeping your head level to do these activities. It is fine to turn your head from side to side when you are in a standing position. When entering or exiting your bed, sit at the edge of the bed, turn, and then lie straight back. When you awake in the morning, sit straight up, then turn , resting at the edge of the bed until any vertigo subsides before standing. Avoid rolling over in bed, and sleep with your head elevated on two pillows. Until your symptoms have resolved, avoid operating your car or other machinery which might place you in danger if you would experience vertigo. Do not drive or operate machinery of you are on any medications as addressed above. Avoid sedatives or alcohol, as this may make you less able to avoid a fall if you should experience vertigo. Avoid working at heights, or other areas where you would be at risk for fall or injury. Use hand rails and other support when climbing stairs. Let others know about your vertigo, and ask for assistance if you need it. Notify your doctor if your symptoms fail to improve, or if they recur. Repeated treatment can often give prompt relief. If you notice any change in your hearing, ringing or buzzing in the ear, ear fullness or pain, headaches, changes in vision, vertigo lasting longer that a few minutes, or any other problems, notify your doctor as this may be a sign of other disease of the ear or balance organ. NOTICE: THIS DOCUMENT IS INTENDED SOLELY FOR PATIENT EDUCATIONAL PURPOSES AND IS PROVIDED A COURTESY TO PATIENTS OF DR. MARY LARKIN MD. IT IS NOT INTENDED A SUBSTITUTE FOR PROFESSIONAL MEDICAL CARE OR ADVICE. THE PATIENT SHOULD SEEK ADVICE FROM THE PHYSICIAN IF THERE ARE ANY QUESTIONS ABOUT THE CONTENTS OR DIRECTIONS PROVIDED IN THIS DOCUMENT documented in this encounter [facility] 07-10-2022 History of Present illness Narrative [facility] [address] [facility] [place] [address] [facility] [id number] Dept: [phone] MD Reddy Barakat 82 y.o. male Patient presents with a chief complaint of Dizziness BP 127/78 Pulse 85 Ht 5' 7 Wt 85.3 kg (188 lb) SpO2 95% BMI 29.44 kg/m History of Presenting Illness: The patient/caregiver reports a history of complaint with the following features: Onset: started a week ago Timing: recurring onset Duration: lasts minutes Quality: head feels swollen, vision fades, nausea Location: inside of head Severity: pain none, but limits daily activities Risk factors: prior vertigo Alleviating factors: maintaining upright posture, looking at stable object, Semont maneuver at home has lessened symptoms Aggravating factors: head movement, laying on left side, pulling to stop in car Associated factors: nausea Review of systems covering 10 systems is reviewed and pertinent positives and negatives are noted as above. Past Medical History: Diagnosis Date Atrial fibrillation (HCC) Coronary artery disease Hyperlipidemia Hypertension IPF (idiopathic pulmonary fibrosis) ([facility]) Current Outpatient Medications: apixaban (ELIQUIS) 5 mg Tab, Take by mouth ., Disp: , Rfl: aspirin 81 MG EC tablet, Take 81 mg by mouth daily ., Disp: , Rfl: atorvastatin (LIPITOR) 80 MG tablet, Take 80 mg by mouth daily ., Disp: , Rfl: meclizine (ANTIVERT) 12.5 mg tablet, Take 12.5 mg by mouth 3 (three) times a day as needed for nausea ., Disp: , Rfl: pantoprazole (PROTONIX) 40 MG tablet, Take 40 mg by mouth daily ., Disp: , Rfl: ramipriL (ALTACE) 5 MG capsule, Take 5 mg by mouth daily ., Disp: , Rfl: No Known Allergies Past Surgical History: Procedure Laterality Date CARDIAC SURGERY Social History Socioeconomic History Marital status: Tobacco Use Smoking status: Never Smokeless tobacco: Never Substance and Sexual Activity Alcohol use: Not Currently Drug use: Not Currently History reviewed. No pertinent family history. PHYSICAL EXAM: The patient was examined today 07/10/2022 with findings as follows: CONSTITUTIONAL: General Appearance: well-appearing, nontoxic, alert, no acute distress Communication: understanding at normal conversational tones, normal voicing, speech intelligible, hearing with hearing aids HEAD/FACE: Head: atraumatic, normocephalic, no lesions Facial Inspection: no lesions, healthy skin Facial Strength: motor strength normal, symmetric strength, symmetric movement Sinuses: no sinus tenderness Salivary Glands: no enlargements of parotid glands, no tenderness of parotid glands, no masses of parotid glands, clear salivary flow on palpation from Stensen's ducts, no duct stones of Stensen's duct, no enlargement of submandibular glands, no tenderness of submandibular glands, no masses of submandibular glands, clear salivary flow from [place]'s ducts, no stones of [place]'s ducts Temporomandibular Joint: no crepitus with motion, no tenderness on palpation, no trismus, motion symmetric EYES: Pupils: PERRLA, extra-ocular movements intact, no nystagmus, sclera white, no redness of eyes, no watering of eyes EARS: Bilateral External Ears: no pits, no tags Right External Ear: normally formed, no lesions, no mastoid tenderness Left External Ear: normally formed, no lesions, no mastoid tenderness Right External Auditory Canal: normal, healthy skin, no obstructing cerumen, no discharge Right Tympanic Membrane: normal landmarks, translucent, mobile to pneumatic otoscopy, no perforation Left Tympanic Membrane: normal landmarks, translucent, mobile to pneumatic otoscopy, no perforation Hearing: intact to spoken voice NOSE: Nasal Skin: no lesions, no lacerations, no scars Nasal Dorsum: symmetric with no visible or palpable deformities Nasal Tip: normal symmetric nasal tip, normal nasal valves Nasal Mucosa: normal, pink and moist Septum: not markedly deformed, midline, no exposed vessels, no bleeding, no septal granuloma Turbinates: normal size and conformation Nasopharynx: normal ORAL CAVITY/MOUTH: Lips, teeth, gums: normal lips, normal gums, dentition partial, no dental pain on palpation Oral Mucosa: normal, moist, no lesions Palate: normal hard palate, normal soft palate, symmetric palatal elevation Floor of Mouth: normal floor of mouth Tongue: normal tongue, no lesions, no edema, no masses, normal mucosa, mobile Tonsils: normal tonsils, symmetric, no lesions Posterior pharynx: normal NECK: Neck: no masses, trachea midline, normal range of motion, no cysts or pits, no tenderness to palpation Thyroid: normal thyroid, no enlargement, no tenderness, no nodules LYMPH NODES: Cervical: no palpable lymph node enlargement Axillary: no palpable lymph node enlargement RESPIRATORY: Inspection/Auscultation: good air movement, chest expands symmetrically, normal breath sounds, no wheezing, no stridor CARDIOVASCULAR SYSTEM: Auscultation: regular rate and rhythm, carotid pulse normal, no carotid thrills, no carotid bruits Observation/Palpation of Peripheral Vascular System: no varicosities, no cyanosis, no edema ABDOMEN: Inspection and Palpation: abdomen soft, non-tender, non-distended MUSCULOSKELETAL SYSTEM: Musculoskeletal System: extremity range of motion intact, strength symmetric and full upper extremities, strength symmetric and full lower extremities SKIN: General Appearance: no lesions, warm and dry, normal turgor, no bruising NEUROLOGICAL SYSTEM: Orientation: oriented to time, oriented to place, oriented to person Cranial Nerves: Cranial Nerves II-XII intact, normal facial movement, normal facial sensation to touch, normal corneal reflex, normal shoulder shrug, normal detection of odorants and normal laryngeal elevation Cerebellar: normal gait, normal finger-nose pointing and negative romberg's sign Vestibulocular: Emma-Hallpike testing with faint geotropic rotatory nystagmus with right ear down, Fukuda step test normal, no ocular pursuit defects, and no head-shaking test induced nystagmus PSYCHIATRIC: Mood and affect: normal mood, normal affect Assessment and Plan: He appears to have right BPPV, although he reports an intolerance of laying in the left. He has a prior history that responded well to Eva and a return to physical therapy for treatment is advised at this time. He denies any syncope to suggest a vascular cause and I am unable to elicit any faintness sensation with various neck positions and feel that this is of lower likelihood as a cause of his complaint. He may continue his Meclizine for nausea as needed. I have advised the patient that the symptoms and exam findings are most consistent with benign paroxysmal positional vertigo. We have discussed that the symptoms result from small calcium particles shed from the gravity sensing organ of the inner ear entering the movement sensing organ rendering it sensitive to changes in the force of gravity. An information sheet describing this in more detail is given. We have discussed that although this usually occurs spontaneously in isolation, these symptoms can also result from other disease of the ear or central nervous system. Treatment options of observation, physical therapy with Eva manuever, home Semont maneuver, and vestibular sedatives are discussed. The patient and/or caregiver is to notify the office if no improvement or worsening of symptoms is noted prior to the scheduled follow-up for sooner evaluation. The patient and/or caregiver is able to state an understanding of these recommendations and is agreeable to the treatment plan. 1. BPPV (benign paroxysmal positional vertigo), right Ambulatory Ref to [facility] (PT/OT/ST) 2. Sensorineural hearing loss (SNHL) of both ears No follow-ups on file. The patient and/or caregiver is to notify the office if no improvement or worsening of symptoms is noted prior to the scheduled follow-up for sooner evaluation. The patient and/or caregiver is able to state an understanding of these recommendations and is agreeable to the treatment plan. --Mary Larkin MD on 07/10/2022 at 2:07 PM An electronic signature was used to authenticate this note. Review of Systems Constitutional: Negative. HENT: Positive for hearing loss. Eyes: Negative. Respiratory: Negative. Cardiovascular: Negative. Gastrointestinal: Positive for nausea. Endocrine: Negative. Genitourinary: Negative. Musculoskeletal: Negative. Skin: Negative. Allergic/Immunologic: Negative. Negative for immunocompromised state. Neurological: Positive for dizziness, light-headedness and headaches. Hematological: Negative. Psychiatric/Behavioral: Negative. documented in this encounter [facility] 09-26-2021 History of Present illness Narrative Pt presents with diagnosis from MD of BPPV for Right ear as well as dizziness and balance problems, however, at this time pt is not experiencing symptoms and has been feeling better for the past 2-3 weeks per pt. He was briefly assessed with no findings warranting treatment at this time. Pt was extensively educated on symptom management as well as given HEP HO for basic balance activities to incorporate at home due to presenting with and reporting balance problems as well. He is being placed on hold for 30 days at this time, but if pt has recurrence of symptoms within 30 days he is to call. This will also serve as pt's D/C if pt does not elect/warrant continued skilled PT within 30 days.Clinical Presentation: Stable and/or uncomplicated characteristics.Level of Complexity: lowProblem List: ADLs/IADLs/self care skills, balance, decreased functional level, dizziness/vertigo, fall risk, gait/locomotion, participation restrictions and transfers. [facility] Work Phone: [facility] BPPV (benign paroxysmal positional vertigo), right [facility] Pulmonary fibrosis (HCC)- Primary Postinflammatory pulmonary fibrosis 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 Diagnosis Pulmonary fibrosis (HCC)- Primary Postinflammatory pulmonary fibrosis [facility] Diagnosis SOB (shortness of breath)- Primary Shortness of breath 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 Pt. notes discomfort with hip adduction. Exercises performed in sitting as it's hard for patient to lay supine. STM to affected area with decreased sx.'s noted after session. Handout provided and reviewed with pt. * Response to treatment: decreased pain and improved knowledge and understanding of condition. * Patient was able to complete today's treatment with some difficulty. [facility] Work Phone: History of Present illness Narrative* Fair tolerance with TE with no c/o increased sx.'s reported. Trial rows, hip strengthening this date with fair tolerance. STM to left lumbar QL/trunk with decrease in sx's following session. * Response to treatment: decreased pain. * Patient was able to complete today's treatment with some difficulty. [facility] Work Phone: History of Present illness Narrative* Pt. appears to tolerate exercises while doing them, denies increased pain. Consulted PT Obey L. about lack of progress and continued high pain levels. Pt. is to try pool therapy for unloading, core work and ROM. Pt. declined STM this date. * Response to treatment: no change in pain. * Patient was able to complete today's treatment with some difficulty. [facility] Work Phone: History of Present illness NarrativePatient tolerated treatment without pain. Patient has Fair TrA and keeps intact with ther-ex. Patient needing one UE support with LE ther-ex and with 100% unloading. Patient has good form/understanding with ther-ex and keeps body in good alignment. Patient feels pool ghas helped and is feeling better. Continue with core stability while performing dyn activity to decrease back pain.[facility] Work Phone: Reason for visit Narrative* Initial Evaluation . Vertigo. * Referred by: Mary Larkin MD [facility] Work [facility]: Summary Purpose Family History No Family History Records FoundUnknown Family Member Name Dates Details Family history of leukemia: Father(V16.6, Z80.6) Status:Active Family history of diabetes m ellitus: Sister, Brother(V18.0, Z83.3) Status:Active Family history of congenital heart disease: Brother(V19.5, Z82.79) Status:Active Unknown Family Member Name Dates Details Family history of leukemia: Father(V16.6, Z80.6) Status:Active Family history of diabetes m ellitus: Sister, Brother(V18.0, Z83.3) Status:Active Family history of congenital heart disease: Brother(V19.5, Z82.79) Status:Active Unknown Family Member Name Dates Details Family history of leukemia: Father(V16.6, Z80.6) Status:Active Family history of diabetes m ellitus: Sister, Brother(V18.0, Z83.3) Status:Active Family history of congenital heart disease: Brother(V19.5, Z82.79) Status:Active Unknown Family Member Name Dates Details Family history of leukemia: Father(V16.6, Z80.6) Status:Active Family history of diabetes m ellitus: Sister, Brother(V18.0, Z83.3) Status:Active Family history of congenital heart disease: Brother(V19.5, Z82.79) Status:Active Unknown Family Member Name Dates Details Family history of leukemia: Father(V16.6, Z80.6) Status:Active Family history of diabetes m ellitus: Sister, Brother(V18.0, Z83.3) Status:Active Family history of congenital heart disease: Brother(V19.5, Z82.79) Status:Active Unknown Family Member Name Dates Details Family history of leukemia: Father(V16.6, Z80.6) Status:Active Family history of diabetes m ellitus: Sister, Brother(V18.0, Z83.3) Status:Active Family history of congenital heart disease: Brother(V19.5, Z82.79) Status:Active Unknown Family Member Name Dates Details Family history of leukemia: Father(V16.6, Z80.6) Status:Active Family history of diabetes m ellitus: Sister, Brother(V18.0, Z83.3) Status:Active Family history of congenital heart disease: Brother(V19.5, Z82.79) Status:Active Advance Directives No Advanced Directives Records FoundNo Advanced Directives Records FoundNo Advanced Directives Records FoundNo Advanced Directives Records FoundNo Advanced Directives Records FoundNo Advanced Directives Records FoundNo Advanced Directives Records Found Reason for Referral Specialty Diagnoses / Procedures Referred By Contac t Referred To Contact Rehabilitation Diagnoses BPPV (benign paroxysmal positional vertigo), right LarkinMary MD [address] [place] [address] [address] [place] [address] [address] [place] [address] Referral ID Status Reason Start Date Expiration Date V isits Requested Visits Authorized [id number] Authorized 07/10/2022 07/10/2023 1 199 Specialty Diagnoses / Procedures Referred By Contac t Referred To Contact Pulmonology Diagnoses Pulmonary fibrosis (HCC) Procedures 6 minute walk Duncan Valdez MD [address] [address] Referral ID Status Reason Start Date Expiration Date V isits Requested Visits Authorized [id number] Authorized 12/06/2022 12/06/2023 1 1 Specialty Diagnoses / Procedures Referred By Contac t Referred To Contact Pulmonology Diagnoses Pulmonary fibrosis (HCC) Procedures Complete PFT with Pre and Post Bronchodilator Duncan Valdez MD [address] [place], [place] [phone] Referral ID Status Reason Start Date Expiration Date V isits Requested Visits Authorized [id number] Authorized 12/06/2022 12/06/2023 1 1 Specialty Diagnoses / Procedures Referred By Contac t Referred To Contact Radiology Diagnoses Pulmonary fibrosis (HCC) Procedures CT Chest Without Contrast Duncan Valdez MD [address] [place], [place] [phone] Referral ID Status Reason Start Date Expiration Date V isits Requested Visits Authorized [id number] New Request 12/06/2022 12/06/2023 1 1 Specialty Diagnoses / Procedures Referred By Contac t Referred To Contact Rehabilitation Diagnoses Pulmonary fibrosis (HCC) Dysphagia, unspecified type Duncan Valdez MD [address] [place] [address] [facility] Speech Therapy [facility] [place] [address] Referral ID Status Reason Start Date Expiration Date Visits Requested Visits Authorized [id number] Pending Review Specialty Services Required/Pat ient's Best Interest 01/30/2023 01/30/2024 1 1 Specialty Diagnoses / Procedures Referred By Contac t Referred To Contact Diagnoses IPF (idiopathic pulmonary fibrosis) (HCC) Duncan Valdez MD [address] [place] [address] Referral ID Status Reason Start Date Expiration Date V isits Requested Visits Authorized [id number] Pending Review 1 1 Specialty Diagnoses / Procedures Referred By Contac t Referred To Contact Mary Jacob, WATER QUALITY SPECIALIST [address] [facility] [address] [place] [id number] Referral ID Status Reason Start Date Expiration Date V isits Requested Visits Authorized [id number] Authorized 08/26/2022 08/25/2023 1 1 Additional Source Comments (unrecognized sect ion and content) No Status Records FoundNo Status Records FoundNo Status Records FoundNo Status Records FoundNo Status Records FoundNo Status Records FoundNo Status Records Found INFORMATION SOURCE (unrecogn ized section and content) DATE CREATED AUTHOR AUTHOR'S ORGANIZ ATION 11/10/2022 [facility] DATE CREATED AUTHOR AUTHOR'S ORGANIZ ATION 11/10/2022 [facility] DATE CREATED AUTHOR AUTHOR'S ORGANIZ ATION 03/02/2023 [facility] DATE CREATED AUTHOR AUTHOR'S ORGANIZ ATION 03/27/2023 [facility] DATE CREATED AUTHOR AUTHOR'S ORGANIZ ATION 08/06/2023 [facility] DATE CREATED AUTHOR AUTHOR'S ORGANIZ ATION 08/31/2023 [facility] Reason for Visit (unrecogniz ed section and content) Reason Comments Physical Therapy Specialty Diagnoses / Procedures Referred By Contac t Referred To Contact Rehabilitation Diagnoses BPPV (benign paroxysmal positional vertigo), right Mary Larkin MD [address] [place] [address] [address] [place] [address] [address] [place] [address] Referral ID Status Reason Start Date Expiration Date V isits Requested Visits Authorized [id number] Authorized 07/10/2022 07/10/2023 1 199 Reason Comments Consult IPF TRANSFER Reason Comments Follow-up 3 month f/u - CT PFT results and trelegy samples 100 Reason Comments Follow-up ON 3 LITERS HAVE TO DO 6 IF HE WALKS Reason Onset Date Comments Medication Refill 03/27/2023 Reason Comments Follow-up 2 month f/u Reason Onset Date Comments Medication Refill 06/25/2023 Reason Comments Follow-up Follow up Care Teams (unrecognized sec tion and content) 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 Specialty Start Date End Date Elham Rodriguez MD [address] [place] [address] PCP - General Family Medicine 06/13/21 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 Specialty Start Date End Date Elham Rodriguez MD [address] [place] [address] PCP - General Family Medicine 06/13/21 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 Specialty Start Date End Date Elham Rodriguez MD [address] [place] [address] PCP - General Family Medicine 06/13/21 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 Specialty Start Date End Date Elham Rodriguez MD [address] [place] [address] PCP - General Family Medicine 06/13/21 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 [address] [place], [place] [phone] PCP - General Family Medicine 06/13/21 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 Specialty Start Date End Date Elham Rodriguez MD [address] [facility] [address] [place], [place] [phone] PCP - General Family Medicine 06/13/21 FOR RECORDS PERTAINING TO PATIENTS WHO ARE OR HAVE BEEN ENROLLED IN A CHEMICAL DEPENDENCY/SUBSTANCEABUSE PROGRAM, SOME INFORMATION MAY BE OMITTED. This clinical summary was aggregated from multiple sources. Caution should be exercised in using it in the provision of clinical care. This summary normalizes information from multiple sources, and as a consequence, information in this document may materially change the coding, format and clinical context of patient data. In addition, data may be omitted in some cases. CLINICAL DECISIONS SHOULD BE BASED ON THE PRIMARY CLINICAL RECORDS. [facility]. provides no warranty or guarantee of the accuracy or completeness of information in this document.
[2023-09-13 14:30] LABS: Absolute Lymphocyte Count 0.66 X10^3/uL (0.83-4.51); Absolute Neutrophil Count 6.1 X10^3/uL (2.0-7.7); Basophil# 0.07 X10^3/uL; Basophil% 0.9 % (0-1); Eosinophil# 0.19 X10^3/uL; Eosinophils% 2.4 % (0-5); Hematocrit 40.3 % (40-54); Lymphocyte # 0.66 X10^3/ul (0.83-4.51); Lymphocyte % 8.3 % (19-41); Mean Corp Hgb Conc 32.3 g/dL (32-36); Mean Corpuscular Hgb 31.3 pg (27.0-32.0); Mean Corpuscular Volume 97.1 fL (80-94); Mean Platelet Vol. 11.9 fl (6.2-12.0); Monocyte# 0.78 X10^3/uL; Monocyte% 9.8 % (0-10); NRBC Flagged by Analyzer 0 % (0-5); Neutrophil # 6.08 X10^3/uL (2.7-7.7); Platelet Count 114 K/mm3 (150-450); RBC Distribution Width CV 12.3 % (11.6-14.6); RBC Distribution Width SD 44.3 fl (35.1-43.9); Red Blood Count 4.15 M/mm3 (4.6-6.2)
== END | disposition home or self-care (01) ==
LOC: LAB 13:36
PROVIDERS: PCP Family Medicine; Referring Provider Family Medicine; Visit Provider Family Medicine
DX: J34.0 Abscess, furuncle and carbuncle of nose (principal); I48.0 Paroxysmal atrial fibrillation; G47.33 Obstructive sleep apnea (adult) (pediatric); I10 Essential (primary) hypertension
CPT/HCPCS: 36415; 85025